=== PATIENT | female | born 1960 | race African-American/Black ===

== ENCOUNTER 2019-12-26 21:27 | Emergency (ER) | payer MEDICARE, MEDICAID ==
[~2019-12-26] VITALS: Ht 162.6 cm; Wt 64.0 kg
[2019-12-26] MEDS ORDERED: ASPI-1497 PO (21:56)
[2019-12-26] MEDS ORDERED: DEXAMETHASONE (21:59)
[2019-12-26] MEDS ORDERED: [UNRECOGNIZED DRUG - OTHER] (21:59)
[2019-12-26] MEDS ORDERED: RENAGEL (22:01)
[2019-12-26] MEDS ORDERED: NEPHRO-VITE (22:01)
[2019-12-26] MEDS ORDERED: LISINOPRIL (22:02)
[2019-12-26] MEDS ORDERED: LIDOCAINE 1%/EPI 1:100,000 10 ML VIAL IJ ONE (22:45)
[2019-12-26] MEDS ORDERED: LIDOCAINE HCL/EPINEPHRINE 1%-EPI 1:100,000 20 ML VIAL INFIL NR (23:15)
[2019-12-26 23:16] LABS: HEMATOCRIT. 26.9 % (36.0-48.0); HEMOGLOBIN. 9.4 g/dL (12.0-16.0); MEAN CORPUSCULAR HEMOGLOBIN 35.7 pg (28.0-32.0); MEAN CORPUSCULAR VOLUME 101.8 fL (81.0-99.0); MEAN PLATELET VOLUME 8.7 fl (7.4-10.4); PLATELET 162 x1000/uL (130-400); RED BLOOD CELL COUNT 2.64 mill/uL (4.2-5.4); RED CELL DISTRIBUTION WIDTH 17.2 % (11.6-14.6)
[2019-12-26 23:22] LABS: CHLORIDE 98 mEq/L (98-107)
[2019-12-26 23:25] LABS: PROTHROMBIN TIME 11.1 sec (9.6-11.0)
[2019-12-27 01:07] VITALS: BP 128/58
[2019-12-27 03:58] LABS: ATYPICAL LYMPHOCYTES 1; PLATELET ESTIMATE NORMAL
== END 2019-12-27 01:08 | disposition home or self-care (01) ==
LOC: ER 21:27
DX: R42 Dizziness and giddiness (principal); I11.0 Hypertensive heart disease with heart failure; F32.9 Major depressive disorder, single episode, unspecified; Z99.2 Dependence on renal dialysis; Z98.890 Other specified postprocedural states
CPT/HCPCS: 36415; 80053; 85025; 85610; 86850; 86870; 86900; 86901; 99283; J3490

== ENCOUNTER 2020-02-18 14:40 | Emergency (ER) | payer MEDICARE, MEDICAID ==
[~2020-02-18] VITALS: Ht 162.6 cm; Wt 63.0 kg
[~2020-02-18 14:40] MED LIST: ASPI-1497 PO; DEXAMETHASONE; LISINOPRIL; NEPHRO-VITE; RENAGEL
[2020-02-18] MEDS ORDERED: ONDANSETRON HCL 4MG/2ML INJ IV STA (15:31)
[2020-02-18] MEDS ORDERED: MORPHINE SULFATE 4 MG/ML CPJ (NOT FOR IM USE) IV STA (15:31)
[2020-02-18] MEDS ORDERED: MORPHINE SULFATE 10 MG/ML CPJ IM ONE (16:45)
[2020-02-18] MEDS ORDERED: ONDANSETRON 4MG ODT PO ONE (16:45)
[2020-02-18 18:07] LABS: BASOPHILS % 0.6 % (0.0-2.0); EOSINOPHILS % 2.7 % (0.0-5.0); HEMATOCRIT. 26.5 % (36.0-48.0); HEMOGLOBIN. 8.7 g/dL (12.0-16.0); LYMPHOCYTES % 17.8 % (20.0-50.0); MEAN CORPUSCULAR HEMOGLOBIN 33.7 pg (28.0-32.0); MEAN CORPUSCULAR VOLUME 102.7 fL (81.0-99.0); MEAN PLATELET VOLUME 9.1 fl (7.4-10.4); NEUTROPHILS % 75.9 % (40.0-76.0); PLATELET 215 x1000/uL (130-400); RED BLOOD CELL COUNT 2.58 mill/uL (4.2-5.4); RED CELL DISTRIBUTION WIDTH 20.3 % (11.6-14.6)
[2020-02-18 18:16] LABS: CHLORIDE 101 mEq/L (98-107)
[2020-02-18] MEDS ORDERED: HYDROCODONE/ACETAMINOPHEN 5/325MG TABLET PO ONE (20:00)
[2020-02-18 20:38] VITALS: BP 160/53
== END 2020-02-18 20:42 | disposition home or self-care (01) ==
LOC: ER 14:40
DX: S42.295A Other nondisplaced fracture of upper end of left humerus, initial encounter for closed fracture (principal); C90.01 Multiple myeloma in remission; E11.22 Type 2 diabetes mellitus with diabetic chronic kidney disease; N18.6 End stage renal disease; D63.1 Anemia in chronic kidney disease; Z92.21 Personal history of antineoplastic chemotherapy; Z99.2 Dependence on renal dialysis; Z87.828 Personal history of other (healed) physical injury and trauma; Z79.82 Long term (current) use of aspirin; W01.0XXA Fall on same level from slipping, tripping and stumbling without subsequent striking against object, initial encounter; Y93.89 Activity, other specified; Y92.018 Other place in single-family (private) house as the place of occurrence of the external cause
CPT/HCPCS: 36415; 72170; 73030; 73060; 73090; 73562; 80053; 85025; 85610; 96372; 96374; 99284; J2270; Q0162

== ENCOUNTER 2020-08-21 22:23 | Emergency (ER) | payer MEDICARE, MEDICAID ==
[~2020-08-21] VITALS: Ht 165.1 cm; Wt 59.0 kg
[2020-08-21] MEDS: ONDANSETRON HCL 4MG/2ML INJ IV STA (23:58)
[2020-08-21] MEDS: MORPHINE SULFATE 4 MG/ML CPJ (NOT FOR IM USE) IV STA (23:58)
[2020-08-22 00:31] LABS: HEMATOCRIT. 25.2 % (36.0-48.0); HEMOGLOBIN. 8.3 g/dL (12.0-16.0); MEAN CORPUSCULAR HEMOGLOBIN 33.7 pg (28.0-32.0); MEAN CORPUSCULAR VOLUME 102.1 fL (81.0-99.0); MEAN PLATELET VOLUME 8.2 fl (7.4-10.4); PLATELET 159 x1000/uL (130-400); RED BLOOD CELL COUNT 2.47 mill/uL (4.2-5.4); RED CELL DISTRIBUTION WIDTH 18.6 % (11.6-14.6)
[2020-08-22 00:38] LABS: CHLORIDE 100 mEq/L (98-107)
[2020-08-22 04:57] LABS: NUCLEATED RED BLOOD CELLS 1 /100 WBC; PLATELET ESTIMATE NORMAL
[2020-08-22 07:44] VITALS: BP 112/68
== END 2020-08-22 07:44 ==
LOC: ER 22:23
DX: M54.2 Cervicalgia (principal); M25.512 Pain in left shoulder; E11.22 Type 2 diabetes mellitus with diabetic chronic kidney disease; N18.6 End stage renal disease; D63.1 Anemia in chronic kidney disease; J90 Pleural effusion, not elsewhere classified; Z85.9 Personal history of malignant neoplasm, unspecified; Z99.2 Dependence on renal dialysis; Z79.82 Long term (current) use of aspirin; W01.0XXA Fall on same level from slipping, tripping and stumbling without subsequent striking against object, initial encounter; Y93.89 Activity, other specified; Y92.128 Other place in nursing home as the place of occurrence of the external cause
CPT/HCPCS: 36415; 70450; 71045; 72125; 73030; 73060; 80053; 84484; 85025; 93005; 96374; 96375; 99285; J2270; J2405

== ENCOUNTER → 2020-10-26 | Outpatient (CLI) | payer MEDICARE, MEDICAID ==
[~2020-10-26] MED LIST changes: +FOLI-43 PO
== END | disposition home or self-care (01) ==
LOC: CT 08:17
PROVIDERS: ATTEND Urology
DX: J90 Pleural effusion, not elsewhere classified (principal); I51.7 Cardiomegaly; N26.1 Atrophy of kidney (terminal); N20.0 Calculus of kidney; K56.41 Fecal impaction; K57.30 Diverticulosis of large intestine without perforation or abscess without bleeding; R60.1 Generalized edema; Z79.82 Long term (current) use of aspirin; Z79.899 Other long term (current) drug therapy; Z95.2 Presence of prosthetic heart valve
CPT/HCPCS: 74176; C1893

== ENCOUNTER 2021-02-14 13:19 | Inpatient (IN) | payer MEDICARE, MEDICAID ==
[~2021-02-14] VITALS: Ht 165.1 cm; Wt 83.0 kg
[~2021-02-14 13:19] MED LIST changes: +DEX6 PO; -DEXAMETHASONE; +FERR-71 PO; +FOLI0.4T6 MT; +FURO-152 PO; +GABA-529 PO; +HYDR-4346 PO; +LIDO700A30 TP; -LISINOPRIL; +MIDO10TA MT; +MIRT15TA6 PO; -NEPHRO-VITE; +NEPHRO-VITE PO; +PANT40TA51 PO; +SACC250C PO; +SACU1TAB7 MT; +TOPUD PO; +TRAM50TA3 PO; +ZOLP10TA2 PO
[2021-02-14] MEDS ORDERED: VANCOMYCIN 1 G PREMIX 200 ML IV ONE (15:00)
[2021-02-14] MEDS ORDERED: PIPERACILLIN/TAZ 3.375G PREMIX 50 ML IV ONE (15:00)
[2021-02-14] MEDS ORDERED: SODIUM CHLORIDE 0.9% 500 ML IV ONE (15:15)
[2021-02-14 15:28] LABS: HEMATOCRIT. 28.4 % (36.0-48.0); HEMOGLOBIN. 9.3 g/dL (12.0-16.0); MEAN CORPUSCULAR HEMOGLOBIN 32.3 pg (28.0-32.0); MEAN CORPUSCULAR VOLUME 98.7 fL (81.0-99.0); MEAN PLATELET VOLUME 8.2 fl (7.4-10.4); PLATELET 110 x1000/uL (130-400); RED BLOOD CELL COUNT 2.88 mill/uL (4.2-5.4); RED CELL DISTRIBUTION WIDTH 18.6 % (11.6-14.6)
[2021-02-14 15:34] LABS: CHLORIDE 103 mEq/L (98-107)
[2021-02-14 15:37] LABS: INR 1.2; PROTHROMBIN TIME 13.2 sec (9.6-11.0)
[2021-02-14 15:38] LABS: ETHANOL BLOOD < 10 mg/dL
[2021-02-14 15:43] LABS: CREATINE KINASE 11 IU/L (26-192)
[2021-02-14 15:50] LABS: PLATELET ESTIMATE DECREASED
[2021-02-14 16:12] LABS: BG BASE EXCESS -1.3 mmol/L (-2.0-2.0); BG CARBOXYHEMOGLOBIN 0.8 % (0.5-1.5); BG DEOXYHEMOGLOBIN 2.8 % (0.0-5.0); BG FRACTION INSPIRED OXYGEN 26; BG HCO3 ACT 21.9 mmol/L (22.0-26.0); BG METHEMOGLOBIN 0.3 % (0.0-1.5); BG OXYGEN SATURATION 97.2 % (92.0-98.5); BG OXYHEMOGLOBIN 96.1 % (94.0-97.0); BG PCO2 30.6 mmHg (35.0-45.0); BG PH 7.472 (7.350-7.450); BG PO2 109.1 mmHg (75.0-100.0); BG SAMPLE SITE RIGHT RADIAL; BG TOTAL HEMOGLOBIN 8.9 g/dL (12.0-18.0); BG VENT MODE NASAL CANNULA
[2021-02-14] MEDS: ACETAMINOPHEN 650MG SUPP PR SCH (21:36)
[2021-02-15] MEDS ORDERED: SODIUM CHLORIDE 0.9% 250 ML IV ONE
[2021-02-15] MEDS ORDERED: CLONIDINE 0.1MG TABLET PO PRN (00:30)
[2021-02-15] MEDS ORDERED: DIPHENHYDRAMINE 50MG/ML VIAL IV PRN (00:30)
[2021-02-15] MEDS ORDERED: SODIUM CHLORIDE 0.9% 1,000 ML IV SCH (00:30)
[2021-02-15] MEDS ORDERED: ONDANSETRON HCL 4MG/2ML INJ IV PRN (00:30)
[2021-02-15] MEDS ORDERED: ACETAMINOPHEN 325MG TABLET PO PRN (00:30)
[2021-02-15] MEDS ORDERED: VANCOMYCIN 1 G PREMIX 200 ML IV SCH (00:30)
[2021-02-15] MEDS ORDERED: CEFEPIME 1,000 MG in DEXTROSE 5% WATER 50 ML IV SCH (01:00)
[2021-02-15 05:04] VITALS: BP 112/67
[2021-02-15 05:09] VITALS: BP 112/67
[2021-02-15] MEDS: BLOOD SUGAR DIAGNOSTIC STRIP TEST SCH ×4 (05:50→21:13)
[2021-02-15] MEDS: DEXTROSE 50% WATER 50ML SYRINGE IV PRN (05:50)
[2021-02-15 08:00] VITALS: BP 101/59
[2021-02-15] MEDS: INSULIN LISPRO 100 UNITS/ML SUBCUT SCH ×4 (08:07→21:00)
[2021-02-15] MEDS ORDERED: HEPARIN 1000 UNITS/ML 10ML ONE (10:34)
[2021-02-15] MEDS ORDERED: LIDOCAINE HCL 1% 20ML VIAL (Pyxis) INJ ONE (10:34)
[2021-02-15] MEDS ORDERED: SODIUM POLYSTYRENE SULFONATE 15 G/60 ML BOT PO SCH (11:30)
[2021-02-15 12:00] VITALS: BP 109/61
[2021-02-15] MEDS: SODIUM CHLORIDE 23.4% 154 MEQ in DEXT 10% WATER 1,000 ML IV SCH (12:00)
[2021-02-15] MEDS: ACETAMINOPHEN 325MG TABLET PO PRN (12:00)
[2021-02-15 16:00] VITALS: BP 105/66
[2021-02-15] MEDS ORDERED: CEFAZOLIN 1000MG PREMIX 50 ML IV SCH ×2 (16:15→17:30)
[2021-02-15] MEDS ORDERED: VANCOMYCIN 750 MG PREMIX 150 ML IV NR (18:00)
[2021-02-15] MEDS: SEVELAMER CARBONATE 800 MG TABLET PO SCH (18:20)
[2021-02-15] MEDS: PIPERACILLIN/TAZOBACTAM 2.25G in DEXTROSE 5% WATER 50ML IV SCH (18:20)
[2021-02-15] MEDS ORDERED: NALOXONE HCL 0.4MG/ML VIAL IV PRN (19:45)
[2021-02-15 20:00] VITALS: BP 100/58
[2021-02-15] MEDS: PANTOPRAZOLE 40MG DR TABLET PO SCH (21:09)
[2021-02-15] MEDS: HYDROCODONE/ACETAMINOPHEN 5/325MG TABLET PO PRN (21:09)
[2021-02-15] MEDS: ACETAMINOPHEN 650MG SUPP PR SCH (21:10)
[2021-02-15] MEDS: MIRTAZAPINE 15MG TABLET PO SCH (21:10)
[2021-02-15 21:40] LABS: HEMATOCRIT. 32.3 % (36.0-48.0); HEMOGLOBIN. 10.4 g/dL (12.0-16.0); MEAN CORPUSCULAR HEMOGLOBIN 32.2 pg (28.0-32.0); MEAN CORPUSCULAR VOLUME 99.8 fL (81.0-99.0); RED BLOOD CELL COUNT 3.23 mill/uL (4.2-5.4)
[2021-02-15 22:33] LABS: PLATELET ESTIMATE DECREAS
[2021-02-15 22:34] LABS: MEAN PLATELET VOLUME 8.8 fl (7.4-10.4); PLATELET 91 x1000/uL (130-400)
[2021-02-16] VITALS: BP 108/64
[2021-02-16] MEDS: PIPERACILLIN/TAZOBACTAM 2.25G in DEXTROSE 5% WATER 50ML IV SCH ×2 (02:06→08:56)
[2021-02-16 04:00] VITALS: BP 103/52
[2021-02-16] MEDS: PANTOPRAZOLE 40MG DR TABLET PO SCH ×2 (06:16→21:16)
[2021-02-16] MEDS: INSULIN LISPRO 100 UNITS/ML SUBCUT SCH ×4 (06:50→21:00)
[2021-02-16] MEDS: BLOOD SUGAR DIAGNOSTIC STRIP TEST SCH ×4 (06:50→21:00)
[2021-02-16 08:00] VITALS: BP 103/54
[2021-02-16] MEDS: GABAPENTIN 100MG CAPSULE PO SCH ×2 (08:55→17:58)
[2021-02-16] MEDS: ASPIRIN 81MG EC TABLET PO SCH (08:55)
[2021-02-16] MEDS: SEVELAMER CARBONATE 800 MG TABLET PO SCH (08:55)
[2021-02-16] MEDS: FOLIC ACID/VITAMIN B COMP W-C TABLET PO SCH (08:56)
[2021-02-16] MEDS: HYDROCODONE/ACETAMINOPHEN 5/325MG TABLET PO PRN ×3 (08:56→21:16)
[2021-02-16] MEDS ORDERED: FOLIC ACID 1MG TABLET PO SCH (09:00)
[2021-02-16] MEDS ORDERED: FERROUS SULFATE 325MG TABLET PO SCH (09:00)
[2021-02-16 12:00] VITALS: BP 131/64
[2021-02-16] MEDS ORDERED: SODIUM POLYSTYRENE SULFONATE 15 G/60 ML BOT PO NR (12:00)
[2021-02-16] MEDS: DEXTROSE 50% WATER 50ML SYRINGE IV PRN ×2 (13:57→21:03)
[2021-02-16] MEDS: SODIUM CHLORIDE 23.4% 154 MEQ in DEXT 10% WATER 1,000 ML IV SCH (14:27)
[2021-02-16 15:07] LABS: HEMATOCRIT. 27.3 % (36.0-48.0); MEAN CORPUSCULAR HEMOGLOBIN 32.3 pg (28.0-32.0); MEAN CORPUSCULAR VOLUME 97.8 fL (81.0-99.0); MEAN PLATELET VOLUME 9.2 fl (7.4-10.4); PLATELET 67 x1000/uL (130-400); RED BLOOD CELL COUNT 2.79 mill/uL (4.2-5.4); RED CELL DISTRIBUTION WIDTH 17.6 % (11.6-14.6)
[2021-02-16 15:22] LABS: PHOSPHORUS 3.8 mg/dL (2.5-4.9)
[2021-02-16 16:00] VITALS: BP 111/58
[2021-02-16 16:29] LABS: PLATELET ESTIMATE DECREASED
[2021-02-16 20:00] VITALS: BP 131/67
[2021-02-16] MEDS ORDERED: EPOETIN ALFA-EPBX 4,000 UNIT/ML VIAL SUBCUT SCH (21:00)
[2021-02-16] MEDS: ACETAMINOPHEN 650MG SUPP PR SCH (21:15)
[2021-02-16] MEDS: MIRTAZAPINE 15MG TABLET PO SCH (21:16)
[2021-02-17] VITALS: BP 96/55
[2021-02-17 04:00] VITALS: BP 97/45
[2021-02-17] MEDS: DEXTROSE 50% WATER 50ML SYRINGE IV PRN ×2 (05:45→12:07)
[2021-02-17] MEDS: PANTOPRAZOLE 40MG DR TABLET PO SCH ×2 (06:02→20:36)
[2021-02-17] MEDS: INSULIN LISPRO 100 UNITS/ML SUBCUT SCH ×4 (06:34→20:37)
[2021-02-17] MEDS: BLOOD SUGAR DIAGNOSTIC STRIP TEST SCH ×4 (06:34→20:37)
[2021-02-17 08:00] VITALS: BP 110/55
[2021-02-17] MEDS: ASPIRIN 81MG EC TABLET PO SCH (08:52)
[2021-02-17] MEDS: GABAPENTIN 100MG CAPSULE PO SCH ×2 (08:52→17:34)
[2021-02-17] MEDS: FOLIC ACID/VITAMIN B COMP W-C TABLET PO SCH (08:52)
[2021-02-17 12:00] VITALS: BP 115/56
[2021-02-17 16:00] VITALS: BP 105/53
[2021-02-17 16:52] LABS: HEMATOCRIT. 30.2 % (36.0-48.0); HEMOGLOBIN. 9.4 g/dL (12.0-16.0); MEAN CORPUSCULAR HEMOGLOBIN 32.7 pg (28.0-32.0); MEAN CORPUSCULAR VOLUME 105.2 fL (81.0-99.0); MEAN PLATELET VOLUME 9.1 fl (7.4-10.4); PLATELET 56 x1000/uL (130-400); RED BLOOD CELL COUNT 2.87 mill/uL (4.2-5.4); RED CELL DISTRIBUTION WIDTH 17.9 % (11.6-14.6)
[2021-02-17 17:12] LABS: PHOSPHORUS 4.7 mg/dL (2.5-4.9)
[2021-02-17] MEDS: SODIUM CHLORIDE 23.4% 154 MEQ in DEXT 10% WATER 1,000 ML IV SCH (17:34)
[2021-02-17 20:00] VITALS: BP 112/61
[2021-02-17] MEDS: MIRTAZAPINE 15MG TABLET PO SCH (20:36)
[2021-02-17 20:37] LABS: PLATELET ESTIMATE DECREASED
[2021-02-17] MEDS: ACETAMINOPHEN 650MG SUPP PR SCH (20:38)
[2021-02-18] VITALS: BP 115/66
[2021-02-18 04:00] VITALS: BP 101/66
[2021-02-18] MEDS: INSULIN LISPRO 100 UNITS/ML SUBCUT SCH ×4 (06:35→20:57)
[2021-02-18] MEDS: BLOOD SUGAR DIAGNOSTIC STRIP TEST SCH ×4 (06:35→20:57)
[2021-02-18] MEDS: PANTOPRAZOLE 40MG DR TABLET PO SCH ×2 (06:40→20:53)
[2021-02-18 07:11] LABS: BASOPHILS % 0.5 % (0.0-2.0); EOSINOPHILS % 2.2 % (0.0-5.0); HEMATOCRIT. 27.7 % (36.0-48.0); HEMOGLOBIN. 8.6 g/dL (12.0-16.0); LYMPHOCYTES % 13.2 % (20.0-50.0); MEAN CORPUSCULAR HEMOGLOBIN 31.7 pg (28.0-32.0); MEAN CORPUSCULAR VOLUME 101.7 fL (81.0-99.0); MEAN PLATELET VOLUME 9.3 fl (7.4-10.4); MONOCYTES % 9.6 % (2.0-8.0); NEUTROPHILS % 74.5 % (40.0-76.0); PLATELET 77 x1000/uL (130-400); RED BLOOD CELL COUNT 2.72 mill/uL (4.2-5.4); RED CELL DISTRIBUTION WIDTH 17.9 % (11.6-14.6)
[2021-02-18 07:14] LABS: PHOSPHORUS 4.7 mg/dL (2.5-4.9)
[2021-02-18 08:00] VITALS: BP 132/52
[2021-02-18] MEDS: FOLIC ACID/VITAMIN B COMP W-C TABLET PO SCH (10:22)
[2021-02-18] MEDS: GABAPENTIN 100MG CAPSULE PO SCH ×2 (10:22→18:19)
[2021-02-18] MEDS: ASPIRIN 81MG EC TABLET PO SCH (10:22)
[2021-02-18] MEDS: HYDROCODONE/ACETAMINOPHEN 5/325MG TABLET PO PRN ×2 (11:39→21:04)
[2021-02-18 12:00] VITALS: BP 97/57
[2021-02-18] MEDS ORDERED: VANCOMYCIN 750 MG PREMIX 150 ML IV SCH (15:00)
[2021-02-18 16:00] VITALS: BP 130/64
[2021-02-18 20:00] VITALS: BP 101/66
[2021-02-18] MEDS: SODIUM CHLORIDE 23.4% 154 MEQ in DEXT 10% WATER 1,000 ML IV SCH (20:53)
[2021-02-18] MEDS: MIRTAZAPINE 15MG TABLET PO SCH (20:53)
[2021-02-18] MEDS: ACETAMINOPHEN 650MG SUPP PR SCH (21:14)
[2021-02-18] MEDS: EPOETIN ALFA-EPBX 10,000 UNIT/ML VIAL SUBCUT SCH (22:03)
[2021-02-19] VITALS: BP 111/60
[2021-02-19 04:00] VITALS: BP 103/57
[2021-02-19] MEDS: BLOOD SUGAR DIAGNOSTIC STRIP TEST SCH ×4 (06:09→21:22)
[2021-02-19] MEDS: PANTOPRAZOLE 40MG DR TABLET PO SCH ×2 (06:09→21:22)
[2021-02-19 07:18] LABS: HEMOGLOBIN. 9.3 g/dL (12.0-16.0); MEAN CORPUSCULAR HEMOGLOBIN 31.8 pg (28.0-32.0); MEAN CORPUSCULAR VOLUME 99.6 fL (81.0-99.0); MEAN PLATELET VOLUME 9.1 fl (7.4-10.4); PLATELET 110 x1000/uL (130-400); RED BLOOD CELL COUNT 2.91 mill/uL (4.2-5.4); RED CELL DISTRIBUTION WIDTH 17.8 % (11.6-14.6)
[2021-02-19 07:28] LABS: PHOSPHORUS 4.2 mg/dL (2.5-4.9)
[2021-02-19] MEDS: INSULIN LISPRO 100 UNITS/ML SUBCUT SCH ×3 (07:40→21:00)
[2021-02-19 08:00] VITALS: BP 110/87
[2021-02-19] MEDS: FOLIC ACID/VITAMIN B COMP W-C TABLET PO SCH (10:40)
[2021-02-19] MEDS: ASPIRIN 81MG EC TABLET PO SCH (10:40)
[2021-02-19] MEDS: GABAPENTIN 100MG CAPSULE PO SCH ×2 (10:40→16:30)
[2021-02-19] MEDS: HYDROCODONE/ACETAMINOPHEN 5/325MG TABLET PO PRN ×2 (11:19→21:30)
[2021-02-19 12:00] VITALS: BP 105/53
[2021-02-19 13:37] LABS: PLATELET ESTIMATE DECREASED
[2021-02-19 16:00] VITALS: BP 103/49
[2021-02-19 20:00] VITALS: BP 104/56
[2021-02-19] MEDS: ACETAMINOPHEN 650MG SUPP PR SCH (21:15)
[2021-02-19] MEDS: MIRTAZAPINE 15MG TABLET PO SCH (21:22)
[2021-02-20] VITALS: BP 107/55
[2021-02-20 04:00] VITALS: BP 114/56
[2021-02-20] MEDS: SODIUM CHLORIDE 23.4% 154 MEQ in DEXT 10% WATER 1,000 ML IV SCH (05:56)
[2021-02-20] MEDS: HYDROCODONE/ACETAMINOPHEN 5/325MG TABLET PO PRN (06:07)
[2021-02-20] MEDS: DEXTROSE 50% WATER 50ML SYRINGE IV PRN (06:08)
[2021-02-20] MEDS: PANTOPRAZOLE 40MG DR TABLET PO SCH ×2 (06:08→21:05)
[2021-02-20] MEDS: BLOOD SUGAR DIAGNOSTIC STRIP TEST SCH ×4 (06:15→21:06)
[2021-02-20 06:46] LABS: HEMATOCRIT. 30.3 % (36.0-48.0); HEMOGLOBIN. 9.2 g/dL (12.0-16.0); MEAN CORPUSCULAR HEMOGLOBIN 31.4 pg (28.0-32.0); MEAN CORPUSCULAR VOLUME 103.2 fL (81.0-99.0); MEAN PLATELET VOLUME 8.4 fl (7.4-10.4); PLATELET 128 x1000/uL (130-400); RED BLOOD CELL COUNT 2.93 mill/uL (4.2-5.4); RED CELL DISTRIBUTION WIDTH 18.3 % (11.6-14.6)
[2021-02-20 07:00] LABS: PHOSPHORUS 5.2 mg/dL (2.5-4.9)
[2021-02-20] MEDS: INSULIN LISPRO 100 UNITS/ML SUBCUT SCH ×4 (07:40→21:00)
[2021-02-20 08:00] VITALS: BP 95/47
[2021-02-20] MEDS: ASPIRIN 81MG EC TABLET PO SCH (10:01)
[2021-02-20] MEDS: FOLIC ACID/VITAMIN B COMP W-C TABLET PO SCH (10:01)
[2021-02-20] MEDS: GABAPENTIN 100MG CAPSULE PO SCH ×2 (10:01→17:36)
[2021-02-20 12:00] VITALS: BP 111/57
[2021-02-20 16:00] VITALS: BP 117/61
[2021-02-20 16:47] LABS: PLATELET ESTIMATE DECREASED
[2021-02-20 20:00] VITALS: BP 120/61
[2021-02-20] MEDS: MIRTAZAPINE 15MG TABLET PO SCH (21:05)
[2021-02-20] MEDS: ACETAMINOPHEN 650MG SUPP PR SCH (21:07)
[2021-02-20] MEDS: ACETAMINOPHEN 325MG TABLET PO PRN (22:22)
[2021-02-21] VITALS (7 sets, daily range): BP systolic 104–126; BP diastolic 56–70
[2021-02-21] MEDS: BLOOD SUGAR DIAGNOSTIC STRIP TEST SCH ×4 (06:16→21:22)
[2021-02-21] MEDS: PANTOPRAZOLE 40MG DR TABLET PO SCH ×2 (06:17→21:57)
[2021-02-21] MEDS: INSULIN LISPRO 100 UNITS/ML SUBCUT SCH ×4 (07:34→21:00)
[2021-02-21] MEDS: FOLIC ACID/VITAMIN B COMP W-C TABLET PO SCH ×2 (08:35→08:37)
[2021-02-21] MEDS: GABAPENTIN 100MG CAPSULE PO SCH ×3 (08:35→17:00)
[2021-02-21] MEDS: ASPIRIN 81MG EC TABLET PO SCH ×2 (08:35→08:37)
[2021-02-21 09:14] LABS: PHOSPHORUS 6.5 mg/dL (2.5-4.9)
[2021-02-21 11:11] LABS: BASOPHILS % 0.7 % (0.0-2.0); EOSINOPHILS % 1.2 % (0.0-5.0); HEMATOCRIT. 23.1 % (36.0-48.0); HEMOGLOBIN. 7.3 g/dL (12.0-16.0); LYMPHOCYTES % 18.5 % (20.0-50.0); MEAN CORPUSCULAR HEMOGLOBIN 32.2 pg (28.0-32.0); MEAN CORPUSCULAR VOLUME 102.3 fL (81.0-99.0); MEAN PLATELET VOLUME 8.9 fl (7.4-10.4); MONOCYTES % 7.2 % (2.0-8.0); NEUTROPHILS % 72.4 % (40.0-76.0); PLATELET 144 x1000/uL (130-400); RED BLOOD CELL COUNT 2.26 mill/uL (4.2-5.4); RED CELL DISTRIBUTION WIDTH 18.3 % (11.6-14.6)
[2021-02-21] MEDS: DEXTROSE 50% WATER 50ML SYRINGE IV PRN (12:48)
[2021-02-21] MEDS ORDERED: HEPARIN SODIUM 1,000 UNIT/1ML VIAL IV ONE (14:15)
[2021-02-21] MEDS ORDERED: LIDOCAINE HCL 1% 20ML VIAL (Pyxis) INJ ONE (14:15)
[2021-02-21] MEDS ORDERED: BUPIVACAINE HCL/PF 0.5% (5MG/ML) 10ML ONE (14:15)
[2021-02-21] MEDS ORDERED: BACITRACIN 50,000 UNITS/VIAL ONE (14:15)
[2021-02-21] MEDS ORDERED: MIDAZOLAM HCL 2 MG/2 ML VIAL ONE (15:11)
[2021-02-21] MEDS ORDERED: PROPOFOL 200MG/20ML VIAL IV ONE ×2 (15:11→16:52)
[2021-02-21] MEDS ORDERED: FENTANYL CITRATE/PF 50MCG/ML 2ML VIAL ONE (15:11)
[2021-02-21] MEDS ORDERED: DEXAMETHASONE 4MG/ML 1ML VIAL ONE (15:15)
[2021-02-21] MEDS ORDERED: ONDANSETRON HCL 4MG/2ML INJ ONE (15:15)
[2021-02-21] MEDS ORDERED: LABETALOL 5MG/ML SYR 20 MG/4 ML SYRINGE IV PRN (15:15)
[2021-02-21] MEDS ORDERED: MEPERIDINE HCL/PF 25MG/ML CPJ IV PRN (15:15)
[2021-02-21] MEDS ORDERED: ONDANSETRON HCL 4MG/2ML INJ IV PRN (15:15)
[2021-02-21] MEDS ORDERED: HYDROMORPHONE HCL/PF 2MG/ML CPJ IV PRN ×2 (15:15→19:15)
[2021-02-21] MEDS ORDERED: BUPIVACAINE HCL/PF 0.25% (2.5MG/ML) 10ML ONE (15:15)
[2021-02-21] MEDS ORDERED: ROPIVACAINE HCL 10MG/ML 20 ML VIAL EPI ONE (15:16)
[2021-02-21] MEDS ORDERED: THROMBIN (BOVINE) 5000 UNITS/VIAL TOP ONE (16:10)
[2021-02-21] MEDS ORDERED: ROCURONIUM BROMIDE 10MG/ML VIAL 5ML IV ONE (17:12)
[2021-02-21] MEDS ORDERED: VANCOMYCIN 500 MG PREMIX 100 ML IV NR (18:00)
[2021-02-21] MEDS ORDERED: NEOSTIGMINE METHYLSULFATE 1MG/ML 10 ML VIAL ONE (18:29)
[2021-02-21] MEDS ORDERED: GLYCOPYRROLATE 0.2 MG/ML 2ML VIAL ONE (18:29)
[2021-02-21] MEDS: ACETAMINOPHEN 650MG SUPP PR SCH (21:15)
[2021-02-21] MEDS: MIRTAZAPINE 15MG TABLET PO SCH (21:57)
[2021-02-21] MEDS: EPOETIN ALFA-EPBX 10,000 UNIT/ML VIAL SUBCUT SCH (22:02)
[2021-02-22] VITALS (7 sets, daily range): BP systolic 100–124; BP diastolic 55–67
[2021-02-22] MEDS: HYDROCODONE/ACETAMINOPHEN 5/325MG TABLET PO PRN ×2 (03:44→21:11)
[2021-02-22] MEDS: PANTOPRAZOLE 40MG DR TABLET PO SCH ×2 (06:35→21:02)
[2021-02-22] MEDS: BLOOD SUGAR DIAGNOSTIC STRIP TEST SCH ×4 (06:35→21:03)
[2021-02-22] MEDS: INSULIN LISPRO 100 UNITS/ML SUBCUT SCH ×4 (06:40→21:00)
[2021-02-22 07:58] LABS: HEMATOCRIT. 30.8 % (36.0-48.0); HEMOGLOBIN. 10.3 g/dL (12.0-16.0); MEAN CORPUSCULAR HEMOGLOBIN 31.5 pg (28.0-32.0); MEAN CORPUSCULAR VOLUME 94.8 fL (81.0-99.0); MEAN PLATELET VOLUME 8.7 fl (7.4-10.4); PLATELET 175 x1000/uL (130-400); RED BLOOD CELL COUNT 3.26 mill/uL (4.2-5.4); RED CELL DISTRIBUTION WIDTH 18.2 % (11.6-14.6)
[2021-02-22 08:04] LABS: PHOSPHORUS 5.2 mg/dL (2.5-4.9)
[2021-02-22] MEDS: ASPIRIN 81MG EC TABLET PO SCH (09:31)
[2021-02-22] MEDS: GABAPENTIN 100MG CAPSULE PO SCH ×2 (09:31→17:45)
[2021-02-22] MEDS: FOLIC ACID/VITAMIN B COMP W-C TABLET PO SCH (09:32)
[2021-02-22] MEDS ORDERED: SODIUM POLYSTYRENE SULFONATE 15 G/60 ML BOT PO NR (10:30)
[2021-02-22] MEDS: RIFAMPIN 300MG CAPSULE PO SCH ×2 (14:06→21:02)
[2021-02-22] MEDS: SODIUM CHLORIDE 23.4% 154 MEQ in DEXT 10% WATER 1,000 ML IV SCH (14:07)
[2021-02-22 14:58] LABS: PLATELET ESTIMATE NORMAL
[2021-02-22] MEDS ORDERED: NALOXONE HCL 0.4MG/ML VIAL IV PRN (20:30)
[2021-02-22] MEDS: MIRTAZAPINE 15MG TABLET PO SCH (21:02)
[2021-02-23] VITALS: BP 98/62
[2021-02-23 04:00] VITALS: BP 116/82
[2021-02-23] MEDS: INSULIN LISPRO 100 UNITS/ML SUBCUT SCH ×4 (06:29→21:00)
[2021-02-23] MEDS: BLOOD SUGAR DIAGNOSTIC STRIP TEST SCH ×4 (06:29→21:50)
[2021-02-23] MEDS: PANTOPRAZOLE 40MG DR TABLET PO SCH ×2 (06:29→21:49)
[2021-02-23] MEDS: RIFAMPIN 300MG CAPSULE PO SCH ×3 (06:29→21:50)
[2021-02-23 08:00] VITALS: BP 113/64
[2021-02-23] MEDS: ASPIRIN 81MG EC TABLET PO SCH (08:44)
[2021-02-23] MEDS: FOLIC ACID/VITAMIN B COMP W-C TABLET PO SCH (08:44)
[2021-02-23] MEDS: GABAPENTIN 100MG CAPSULE PO SCH ×2 (08:45→17:49)
[2021-02-23 12:00] VITALS: BP 99/54
[2021-02-23 16:00] VITALS: BP 102/64
[2021-02-23 16:48] LABS: PHOSPHORUS 5.3 mg/dL (2.5-4.9)
[2021-02-23 20:00] VITALS: BP 104/66
[2021-02-23] MEDS ORDERED: VANCOMYCIN 500 MG PREMIX 100 ML IV SCH (20:00)
[2021-02-23] MEDS ORDERED: EPOETIN ALFA-EPBX 4,000 UNIT/ML VIAL SUBCUT SCH (21:00)
[2021-02-23] MEDS: MIRTAZAPINE 15MG TABLET PO SCH (21:50)
[2021-02-24] VITALS (23 sets, daily range): BP systolic 97–120; BP diastolic 48–73
[2021-02-24] MEDS: RIFAMPIN 300MG CAPSULE PO SCH ×3 (06:00→21:18)
[2021-02-24] MEDS: PANTOPRAZOLE 40MG DR TABLET PO SCH ×2 (06:03→21:00)
[2021-02-24] MEDS: BLOOD SUGAR DIAGNOSTIC STRIP TEST SCH ×4 (06:04→20:32)
[2021-02-24 06:36] LABS: HEMATOCRIT. 30.8 % (36.0-48.0); MEAN CORPUSCULAR VOLUME 96.1 fL (81.0-99.0); MEAN PLATELET VOLUME 8.6 fl (7.4-10.4); PLATELET 171 x1000/uL (130-400); RED BLOOD CELL COUNT 3.21 mill/uL (4.2-5.4); RED CELL DISTRIBUTION WIDTH 18.6 % (11.6-14.6)
[2021-02-24 06:59] LABS: PHOSPHORUS 3.6 mg/dL (2.5-4.9)
[2021-02-24] MEDS: INSULIN LISPRO 100 UNITS/ML SUBCUT SCH ×4 (07:40→20:33)
[2021-02-24] MEDS: GABAPENTIN 100MG CAPSULE PO SCH ×2 (09:00→18:39)
[2021-02-24] MEDS: ASPIRIN 81MG EC TABLET PO SCH (09:00)
[2021-02-24] MEDS: FOLIC ACID/VITAMIN B COMP W-C TABLET PO SCH (09:00)
[2021-02-24] MEDS ORDERED: MIDAZOLAM HCL 2 MG/2 ML VIAL ONE ×2 (10:10→10:13)
[2021-02-24] MEDS ORDERED: FENTANYL CITRATE/PF 50MCG/ML 2ML VIAL ONE ×2 (10:13→13:00)
[2021-02-24] MEDS ORDERED: FLUMAZENIL 0.1 MG/ML 5ML VIAL IV ONE (10:14)
[2021-02-24] MEDS ORDERED: NALOXONE HCL 0.4 MG/ML 1ML VIAL ONE (10:14)
[2021-02-24] MEDS ORDERED: LIDOCAINE HCL 2% JELLY 5ML ONE (10:14)
[2021-02-24] MEDS ORDERED: TETRACAINE/BENZOCAINE/BUTAMBEN 20 GM SPRAY MM ONE (10:15)
[2021-02-24] MEDS ORDERED: HEPARIN 1000 UNITS/ML 10ML ONE (13:00)
[2021-02-24] MEDS ORDERED: LIDOCAINE HCL 1% 20ML VIAL (Pyxis) INJ ONE (13:00)
[2021-02-24] MEDS ORDERED: SODIUM BICARBONATE 4% (2.4MEQ) 5ML VIAL IV ONE (13:00)
[2021-02-24] MEDS ORDERED: IOHEXOL-300 50 ML BOTTLE IV ONE (13:59)
[2021-02-24] MEDS ORDERED: FENTANYL CITRATE/PF 50MCG/ML 2ML VIAL IV ONE (14:15)
[2021-02-24] MEDS: HYDROCODONE/ACETAMINOPHEN 5/325MG TABLET PO PRN (15:35)
[2021-02-24] MEDS: MIRTAZAPINE 15MG TABLET PO SCH (21:00)
[2021-02-25 18:04] LABS: PLATELET ESTIMATE NORMAL
== END 2021-02-24 21:23 | DRG 252 ==
LOC: ER 13:19 → MICUSO 19:28 → EDBEDREQTM 19:34 → EDBEDREQ 19:34 → 7WST 02-15 03:56 → 8WST 02-15 15:26
PROVIDERS: ADMIT Internal Medicine; ATTEND Internal Medicine
PROC: 06HY33Z Insertion of Infusion Device into Lower Vein, Percutaneous Approach (ICD-10-PCS; 2021-02-15)
PROC: B54BZZA Ultrasonography of Right Lower Extremity Veins, Guidance (ICD-10-PCS; 2021-02-15)
PROC: 5A1D70Z Performance of Urinary Filtration, Intermittent, Less than 6 Hours Per Day (ICD-10-PCS; 2021-02-15)
PROC: 5A1D70Z Performance of Urinary Filtration, Intermittent, Less than 6 Hours Per Day (ICD-10-PCS; 2021-02-16)
PROC: 5A1D70Z Performance of Urinary Filtration, Intermittent, Less than 6 Hours Per Day (ICD-10-PCS; 2021-02-18)
PROC: 05PY0JZ Removal of Synthetic Substitute from Upper Vein, Open Approach (ICD-10-PCS; 2021-02-21)
PROC: 03PY0JZ Removal of Synthetic Substitute from Upper Artery, Open Approach (ICD-10-PCS; 2021-02-21)
PROC: 5A1D70Z Performance of Urinary Filtration, Intermittent, Less than 6 Hours Per Day (ICD-10-PCS; 2021-02-21)
PROC: 30233N1 Transfusion of Nonautologous Red Blood Cells into Peripheral Vein, Percutaneous Approach (ICD-10-PCS; 2021-02-21)
PROC: 5A1D70Z Performance of Urinary Filtration, Intermittent, Less than 6 Hours Per Day (ICD-10-PCS; 2021-02-23)
PROC: 0JH63XZ Insertion of Tunneled Vascular Access Device into Chest Subcutaneous Tissue and Fascia, Percutaneous Approach (ICD-10-PCS; principal; 2021-02-24)
PROC: 02HV33Z Insertion of Infusion Device into Superior Vena Cava, Percutaneous Approach (ICD-10-PCS; 2021-02-24)
PROC: B5181ZA Fluoroscopy of Superior Vena Cava using Low Osmolar Contrast, Guidance (ICD-10-PCS; 2021-02-24)
PROC: B548ZZA Ultrasonography of Superior Vena Cava, Guidance (ICD-10-PCS; 2021-02-24)
PROC: 5A1D70Z Performance of Urinary Filtration, Intermittent, Less than 6 Hours Per Day (ICD-10-PCS; 2021-02-24)
DX: T82.7XXA Infection and inflammatory reaction due to other cardiac and vascular devices, implants and grafts, initial encounter (principal); A41.02 Sepsis due to Methicillin resistant Staphylococcus aureus; G93.41 Metabolic encephalopathy; J96.00 Acute respiratory failure, unspecified whether with hypoxia or hypercapnia; N18.6 End stage renal disease; R65.20 Severe sepsis without septic shock; C90.00 Multiple myeloma not having achieved remission; I13.2 Hypertensive heart and chronic kidney disease with heart failure and with stage 5 chronic kidney disease, or end stage renal disease; I43 Cardiomyopathy in diseases classified elsewhere; I69.354 Hemiplegia and hemiparesis following cerebral infarction affecting left non-dominant side; T82.838A Hemorrhage due to vascular prosthetic devices, implants and grafts, initial encounter; E11.649 Type 2 diabetes mellitus with hypoglycemia without coma; I27.21 Secondary pulmonary arterial hypertension; K74.60 Unspecified cirrhosis of liver; Y84.1 Kidney dialysis as the cause of abnormal reaction of the patient, or of later complication, without mention of misadventure at the time of the procedure; Z53.20 Procedure and treatment not carried out because of patient's decision for unspecified reasons; I50.9 Heart failure, unspecified; D69.6 Thrombocytopenia, unspecified; E21.3 Hyperparathyroidism, unspecified; K21.9 Gastro-esophageal reflux disease without esophagitis; F32.9 Major depressive disorder, single episode, unspecified; E11.42 Type 2 diabetes mellitus with diabetic polyneuropathy; D64.9 Anemia, unspecified; E11.22 Type 2 diabetes mellitus with diabetic chronic kidney disease; E87.5 Hyperkalemia; Z20.822 Contact with and (suspected) exposure to COVID-19; I34.0 Nonrheumatic mitral (valve) insufficiency; M62.50 Muscle wasting and atrophy, not elsewhere classified, unspecified site; Y83.2 Surgical operation with anastomosis, bypass or graft as the cause of abnormal reaction of the patient, or of later complication, without mention of misadventure at the time of the procedure; Z82.49 Family history of ischemic heart disease and other diseases of the circulatory system; Z87.442 Personal history of urinary calculi; Y92.89 Other specified places as the place of occurrence of the external cause; Z99.2 Dependence on renal dialysis; Z79.1 Long term (current) use of non-steroidal anti-inflammatories (NSAID); Z79.899 Other long term (current) drug therapy; Z91.15 Patient's noncompliance with renal dialysis
CPT/HCPCS: 36415; 36430; 36558; 36600; 71045; 76937; 77001; 80048; 80053; 80061; 80202; 80320; 82375; 82550; 82728; 82805; 82962; 83036; 83605; 83615; 83735; 83880; 84100; 84145; 84484; 85025; 86140; 86803; 86850; 86870; 86900; 86920; 87077; 87186; 87340; 87426; 88304; 93005; 93306; 93312; 99152; 99153; 99291; C1750; C1752; J0690; J0692; J0885; J1100; J1170; J1644; J1815; J2250; J2310; J2405; J2543; J2704; J2710; J2795; J3010; J3370; J3490; J7030; J7040; J7050; J7060; J7131; P9016; Q9967; U0003; U0005; G0480; G0500

== ENCOUNTER 2021-07-25 11:39 | Inpatient (IN) | payer MEDICARE, MEDICAID ==
[~2021-07-25] VITALS: Ht 154.9 cm; Wt 58.3 kg
[~2021-07-25 11:39] MED LIST changes: -FOLI0.4T6 MT; +MIRT-89 PO; -MIRT15TA6 PO
[2021-07-25 13:12] LABS: CHLORIDE 106 mEq/L (98-107)
[2021-07-25 13:17] LABS: BASOPHILS % 0.4 % (0.0-2.0); HEMATOCRIT. 35.7 % (36.0-48.0); HEMOGLOBIN. 11.6 g/dL (12.0-16.0); LYMPHOCYTES % 14.4 % (20.0-50.0); MEAN CORPUSCULAR HEMOGLOBIN 32.3 pg (28.0-32.0); MEAN CORPUSCULAR VOLUME 99.9 fL (81.0-99.0); MEAN PLATELET VOLUME 8.2 fl (7.4-10.4); MONOCYTES % 6.7 % (2.0-8.0); NEUTROPHILS % 75.5 % (40.0-76.0); PLATELET 149 x1000/uL (130-400); RED BLOOD CELL COUNT 3.58 mill/uL (4.2-5.4); RED CELL DISTRIBUTION WIDTH 16.7 % (11.6-14.6)
[2021-07-25 13:24] LABS: BG BASE EXCESS -6.7 mmol/L (-2.0-2.0); BG CARBOXYHEMOGLOBIN 1.2 % (0.5-1.5); BG DEOXYHEMOGLOBIN 32.5 % (0.0-5.0); BG FRACTION INSPIRED OXYGEN 21; BG HCO3 ACT 19.7 mmol/L (22.0-26.0); BG OXYGEN SATURATION 67.1 % (92.0-98.5); BG OXYHEMOGLOBIN 66.3 % (94.0-97.0); BG PCO2 43.1 mmHg (35.0-45.0); BG PH 7.278 (7.350-7.450); BG SAMPLE SITE RIGHT BRACHIAL; BG TOTAL HEMOGLOBIN 11.4 g/dL (12.0-18.0); BG VENT MODE ROOM AIR
[2021-07-25 15:23] LABS: BG BASE EXCESS -8.8 mmol/L (-2.0-2.0); BG DEOXYHEMOGLOBIN 2.4 % (0.0-5.0); BG FRACTION INSPIRED OXYGEN 30; BG HCO3 ACT 16.8 mmol/L (22.0-26.0); BG METHEMOGLOBIN 0.3 % (0.0-1.5); BG OXYGEN SATURATION 97.6 % (92.0-98.5); BG OXYHEMOGLOBIN 97.3 % (94.0-97.0); BG PCO2 35.6 mmHg (35.0-45.0); BG PH 7.293 (7.350-7.450); BG PO2 159.9 mmHg (75.0-100.0); BG SAMPLE SITE LEFT BRACHIAL; BG TOTAL HEMOGLOBIN 10.9 g/dL (12.0-18.0); BG VENT MODE NASAL CANNULA
[2021-07-25] MEDS ORDERED: SODIUM POLYSTYRENE SULFONATE 15 G/60 ML BOT PO NR (16:30)
[2021-07-25] MEDS ORDERED: FUROSEMIDE 100MG/10ML VIAL IVP NR (16:30)
[2021-07-25] MEDS ORDERED: SODIUM BICARBONATE 8.4% 1 MEQ/ML 50ML SYR IV NR (16:45)
[2021-07-25] MEDS ORDERED: DOCUSATE SODIUM 100MG CAPSULE PO PRN (17:00)
[2021-07-25] MEDS ORDERED: ACETAMINOPHEN 325MG TABLET PO PRN (17:00)
[2021-07-25] MEDS ORDERED: ONDANSETRON HCL 4MG/2ML INJ IV PRN (17:00)
[2021-07-25] MEDS: MIDODRINE HCL 5MG TABLET PO SCH (17:15)
[2021-07-25] MEDS ORDERED: ZOLPIDEM TARTRATE 5MG TABLET PO PRN (17:15)
[2021-07-25] MEDS: GABAPENTIN 100MG CAPSULE PO SCH (18:00)
[2021-07-25] MEDS: FAMOTIDINE 20MG TABLET PO SCH (22:09)
[2021-07-25] MEDS: HEPARIN 5000 UNITS/ML VIAL SUBCUT SCH (22:10)
[2021-07-26 05:45] VITALS: BP 141/75
[2021-07-26] MEDS: HEPARIN 5000 UNITS/ML VIAL SUBCUT SCH ×3 (07:00→21:21)
[2021-07-26] MEDS: GABAPENTIN 100MG CAPSULE PO SCH ×2 (07:00→17:22)
[2021-07-26] MEDS: FERROUS SULFATE 300MG/5ML UDC PO SCH ×3 (07:00→17:22)
[2021-07-26 08:00] VITALS: BP 168/82
[2021-07-26] MEDS: DEXAMETHASONE 2MG TABLET PO SCH (08:10)
[2021-07-26] MEDS: MIDODRINE HCL 5MG TABLET PO SCH ×2 (08:10→13:00)
[2021-07-26 12:00] VITALS: BP 145/90
[2021-07-26 13:04] LABS: BASOPHILS % 0.1 % (0.0-2.0); EOSINOPHILS % 2.9 % (0.0-5.0); HEMATOCRIT. 35.3 % (36.0-48.0); HEMOGLOBIN. 11.3 g/dL (12.0-16.0); LYMPHOCYTES % 11.2 % (20.0-50.0); MEAN CORPUSCULAR HEMOGLOBIN 32.5 pg (28.0-32.0); MEAN CORPUSCULAR VOLUME 101.4 fL (81.0-99.0); MEAN PLATELET VOLUME 8.1 fl (7.4-10.4); MONOCYTES % 4.7 % (2.0-8.0); NEUTROPHILS % 81.1 % (40.0-76.0); PLATELET 145 x1000/uL (130-400); RED BLOOD CELL COUNT 3.48 mill/uL (4.2-5.4); RED CELL DISTRIBUTION WIDTH 16.5 % (11.6-14.6)
[2021-07-26 13:20] LABS: PHOSPHORUS 7.5 mg/dL (2.5-4.9)
[2021-07-26] MEDS: TRAMADOL 50MG TABLET PO PRN (13:31)
[2021-07-26] MEDS ORDERED: SEVE0.8P3 PO (14:41)
[2021-07-26] MEDS ORDERED: SERT-422 PO (14:51)
[2021-07-26] MEDS ORDERED: CINA30 PO (14:51)
[2021-07-26] MEDS ORDERED: ACYC200C31 PO (14:51)
[2021-07-26] MEDS ORDERED: DIPH1TAB24 PO (14:51)
[2021-07-26] MEDS ORDERED: NEPVIT PO (14:51)
[2021-07-26 16:00] VITALS: BP 142/63
[2021-07-26 20:00] VITALS: BP 131/65
[2021-07-26] MEDS: FAMOTIDINE 20MG TABLET PO SCH (21:21)
[2021-07-27] VITALS: BP 153/63
[2021-07-27 04:00] VITALS: BP 142/50
[2021-07-27] MEDS: HEPARIN 5000 UNITS/ML VIAL SUBCUT SCH ×3 (05:47→22:00)
[2021-07-27] MEDS: GABAPENTIN 100MG CAPSULE PO SCH ×2 (05:47→17:17)
[2021-07-27 08:00] VITALS: BP 140/67
[2021-07-27] MEDS: FERROUS SULFATE 300MG/5ML UDC PO SCH ×3 (09:30→17:17)
[2021-07-27] MEDS: FUROSEMIDE 20MG TABLET PO SCH (09:31)
[2021-07-27] MEDS: TRAMADOL 50MG TABLET PO PRN (09:31)
[2021-07-27] MEDS: DEXAMETHASONE 2MG TABLET PO SCH (09:31)
[2021-07-27 11:07] LABS: BASOPHILS % 0.6 % (0.0-2.0); EOSINOPHILS % 2.7 % (0.0-5.0); HEMATOCRIT. 31.5 % (36.0-48.0); LYMPHOCYTES % 15.8 % (20.0-50.0); MEAN CORPUSCULAR HEMOGLOBIN 32.3 pg (28.0-32.0); MEAN CORPUSCULAR VOLUME 101.8 fL (81.0-99.0); MEAN PLATELET VOLUME 7.8 fl (7.4-10.4); MONOCYTES % 7.6 % (2.0-8.0); NEUTROPHILS % 73.3 % (40.0-76.0); PLATELET 135 x1000/uL (130-400); RED BLOOD CELL COUNT 3.09 mill/uL (4.2-5.4); RED CELL DISTRIBUTION WIDTH 16.8 % (11.6-14.6)
[2021-07-27 12:00] VITALS: BP 149/77
[2021-07-27 12:55] LABS: PHOSPHORUS 7.7 mg/dL (2.5-4.9)
[2021-07-27 16:00] VITALS: BP 160/76
[2021-07-27] MEDS: AMLODIPINE 5MG TABLET PO SCH (19:28)
[2021-07-27 20:00] VITALS: BP 161/71
[2021-07-27] MEDS: FAMOTIDINE 20MG TABLET PO SCH (20:54)
[2021-07-28 04:00] VITALS: BP 171/77
[2021-07-28] MEDS: HYDRALAZINE 20MG/ML VIAL IV PRN (06:00)
[2021-07-28] MEDS: GABAPENTIN 100MG CAPSULE PO SCH ×2 (06:00→18:29)
[2021-07-28] MEDS: HEPARIN 5000 UNITS/ML VIAL SUBCUT SCH ×3 (06:01→22:17)
[2021-07-28 08:00] VITALS: BP 166/76
[2021-07-28] MEDS: AMLODIPINE 5MG TABLET PO SCH (08:56)
[2021-07-28] MEDS: FUROSEMIDE 20MG TABLET PO SCH (08:56)
[2021-07-28] MEDS: DEXAMETHASONE 2MG TABLET PO SCH (08:56)
[2021-07-28] MEDS: FERROUS SULFATE 300MG/5ML UDC PO SCH ×3 (08:56→18:29)
[2021-07-28 12:00] VITALS: BP 142/68
[2021-07-28 16:00] VITALS: BP 147/71
[2021-07-28] MEDS ORDERED: DIPHENHYDRAMINE 50MG/ML VIAL IV NR (16:21)
[2021-07-28] MEDS ORDERED: SODIUM POLYSTYRENE SULFONATE 15 G/60 ML BOT PO NR (16:30)
[2021-07-28 20:00] VITALS: BP 162/70
[2021-07-28] MEDS: FAMOTIDINE 20MG TABLET PO SCH (22:16)
[2021-07-28] MEDS: HYDRALAZINE HCL 10MG TABLET PO SCH (22:17)
[2021-07-29] MEDS: HYDRALAZINE 20MG/ML VIAL IV PRN (03:10)
[2021-07-29 04:00] VITALS: BP 148/75
[2021-07-29] MEDS: GABAPENTIN 100MG CAPSULE PO SCH ×2 (06:44→17:21)
[2021-07-29] MEDS: HYDRALAZINE HCL 10MG TABLET PO SCH ×3 (06:44→22:01)
[2021-07-29] MEDS: FERROUS SULFATE 300MG/5ML UDC PO SCH ×3 (06:45→17:22)
[2021-07-29] MEDS: HEPARIN 5000 UNITS/ML VIAL SUBCUT SCH ×3 (06:45→22:00)
[2021-07-29] MEDS: DIPHENHYDRAMINE 12.5MG/5ML UDC PO PRN ×2 (07:00→20:47)
[2021-07-29 08:00] VITALS: BP 167/74
[2021-07-29] MEDS: DEXAMETHASONE 2MG TABLET PO SCH (09:08)
[2021-07-29] MEDS: FUROSEMIDE 20MG TABLET PO SCH (09:09)
[2021-07-29] MEDS: AMLODIPINE 5MG TABLET PO SCH (09:09)
[2021-07-29 11:30] LABS: BASOPHILS % 0.1 % (0.0-2.0); EOSINOPHILS % 0.1 % (0.0-5.0); LYMPHOCYTES % 7.6 % (20.0-50.0); MEAN CORPUSCULAR HEMOGLOBIN 32.8 pg (28.0-32.0); MEAN CORPUSCULAR VOLUME 98.8 fL (81.0-99.0); MEAN PLATELET VOLUME 8.5 fl (7.4-10.4); MONOCYTES % 4.1 % (2.0-8.0); NEUTROPHILS % 88.1 % (40.0-76.0); PLATELET 161 x1000/uL (130-400); RED BLOOD CELL COUNT 3.34 mill/uL (4.2-5.4); RED CELL DISTRIBUTION WIDTH 15.6 % (11.6-14.6)
[2021-07-29 12:00] VITALS: BP 115/61
[2021-07-29 12:08] LABS: PHOSPHORUS 8.4 mg/dL (2.5-4.9)
[2021-07-29] MEDS: CALCIUM ACETATE 667MG CAPSULE PO SCH ×2 (13:13→17:21)
[2021-07-29 16:00] VITALS: BP 152/84
[2021-07-29] MEDS ORDERED: CLONIDINE 0.1MG TABLET PO PRN (19:00)
[2021-07-29 20:00] VITALS: BP 125/70
[2021-07-29] MEDS: FAMOTIDINE 20MG TABLET PO SCH (20:47)
[2021-07-29] MEDS: MIRTAZAPINE 15MG TABLET PO SCH (21:28)
[2021-07-29] MEDS: ACYCLOVIR 200MG CAPSULE PO SCH (21:28)
[2021-07-29 21:38] LABS: HEPATITIS B SURFACE AB < 3.1 mIU/mL
[2021-07-29 21:50] LABS: HEPATITIS B SURFACE ANTIGEN NEGATIVE
[2021-07-29] MEDS ORDERED: HYDRALAZINE HCL 10MG TABLET PO SCH (22:00)
[2021-07-30 04:00] VITALS: BP 136/69
[2021-07-30] MEDS: GABAPENTIN 100MG CAPSULE PO SCH ×2 (06:50→17:06)
[2021-07-30] MEDS: HEPARIN 5000 UNITS/ML VIAL SUBCUT SCH ×3 (06:51→21:45)
[2021-07-30] MEDS: HYDRALAZINE HCL 10MG TABLET PO SCH ×3 (07:20→21:46)
[2021-07-30 08:00] VITALS: BP 125/64
[2021-07-30] MEDS: CALCIUM ACETATE 667MG CAPSULE PO SCH ×3 (08:53→17:06)
[2021-07-30] MEDS: FUROSEMIDE 20MG TABLET PO SCH (08:53)
[2021-07-30] MEDS: FERROUS SULFATE 300MG/5ML UDC PO SCH ×3 (08:53→17:06)
[2021-07-30] MEDS: ACYCLOVIR 200MG CAPSULE PO SCH ×2 (08:53→21:45)
[2021-07-30] MEDS: AMLODIPINE 5MG TABLET PO SCH (08:53)
[2021-07-30 12:00] VITALS: BP 133/62
[2021-07-30] MEDS: TRAMADOL 50MG TABLET PO PRN (13:13)
[2021-07-30] MEDS: DIPHENHYDRAMINE 12.5MG/5ML UDC PO PRN (15:06)
[2021-07-30 16:00] VITALS: BP 132/59
[2021-07-30 20:00] VITALS: BP 139/66
[2021-07-30] MEDS: MIRTAZAPINE 15MG TABLET PO SCH (21:45)
[2021-07-30] MEDS: FAMOTIDINE 20MG TABLET PO SCH (21:45)
[2021-07-31 04:00] VITALS: BP 122/59
[2021-07-31 06:17] LABS: BASOPHILS % 0.2 % (0.0-2.0); EOSINOPHILS % 1.9 % (0.0-5.0); HEMATOCRIT. 32.6 % (36.0-48.0); HEMOGLOBIN. 10.7 g/dL (12.0-16.0); LYMPHOCYTES % 11.3 % (20.0-50.0); MEAN CORPUSCULAR HEMOGLOBIN 32.4 pg (28.0-32.0); MEAN CORPUSCULAR VOLUME 98.9 fL (81.0-99.0); MEAN PLATELET VOLUME 7.8 fl (7.4-10.4); MONOCYTES % 8.2 % (2.0-8.0); NEUTROPHILS % 78.4 % (40.0-76.0); PLATELET 142 x1000/uL (130-400); RED CELL DISTRIBUTION WIDTH 15.9 % (11.6-14.6)
[2021-07-31] MEDS: CALCIUM ACETATE 667MG CAPSULE PO SCH ×3 (06:17→17:02)
[2021-07-31] MEDS: HYDRALAZINE HCL 10MG TABLET PO SCH ×3 (06:17→22:21)
[2021-07-31] MEDS: GABAPENTIN 100MG CAPSULE PO SCH ×2 (06:17→17:02)
[2021-07-31] MEDS: HEPARIN 5000 UNITS/ML VIAL SUBCUT SCH ×3 (06:17→22:22)
[2021-07-31] MEDS: FERROUS SULFATE 300MG/5ML UDC PO SCH ×3 (06:18→17:02)
[2021-07-31 08:00] VITALS: BP 130/59
[2021-07-31] MEDS: FUROSEMIDE 20MG TABLET PO SCH (10:00)
[2021-07-31] MEDS: AMLODIPINE 5MG TABLET PO SCH (10:01)
[2021-07-31 10:35] VITALS: BP 130/59
[2021-07-31 12:00] VITALS: BP 121/70
[2021-07-31] MEDS: ACYCLOVIR 200MG CAPSULE PO SCH ×2 (12:15→22:21)
[2021-07-31 16:00] VITALS: BP 141/67
[2021-07-31 20:00] VITALS: BP 135/73
[2021-07-31] MEDS ORDERED: IPRATROPIUM/ALBUTEROL 0.5-3(2.5)MG/3ML NEB HHN PRN (20:15)
[2021-07-31] MEDS: MIRTAZAPINE 15MG TABLET PO SCH (22:19)
[2021-07-31] MEDS: FAMOTIDINE 20MG TABLET PO SCH (22:19)
[2021-08-01 04:00] VITALS: BP 155/77
[2021-08-01] MEDS: HYDRALAZINE HCL 10MG TABLET PO SCH ×2 (07:22→14:00)
[2021-08-01] MEDS: FERROUS SULFATE 300MG/5ML UDC PO SCH ×3 (07:22→17:49)
[2021-08-01] MEDS: CALCIUM ACETATE 667MG CAPSULE PO SCH ×3 (07:22→17:49)
[2021-08-01] MEDS: HEPARIN 5000 UNITS/ML VIAL SUBCUT SCH ×2 (07:22→14:15)
[2021-08-01] MEDS: GABAPENTIN 100MG CAPSULE PO SCH ×2 (07:23→17:49)
[2021-08-01 08:00] VITALS: BP 149/76
[2021-08-01 08:33] LABS: BASOPHILS % 0.1 % (0.0-2.0); EOSINOPHILS % 3.9 % (0.0-5.0); HEMATOCRIT. 30.8 % (36.0-48.0); HEMOGLOBIN. 10.3 g/dL (12.0-16.0); LYMPHOCYTES % 12.4 % (20.0-50.0); MEAN CORPUSCULAR HEMOGLOBIN 32.7 pg (28.0-32.0); MEAN PLATELET VOLUME 7.9 fl (7.4-10.4); MONOCYTES % 6.5 % (2.0-8.0); NEUTROPHILS % 77.1 % (40.0-76.0); PLATELET 149 x1000/uL (130-400); RED BLOOD CELL COUNT 3.14 mill/uL (4.2-5.4); RED CELL DISTRIBUTION WIDTH 15.6 % (11.6-14.6)
[2021-08-01] MEDS: AMLODIPINE 5MG TABLET PO SCH (09:23)
[2021-08-01] MEDS: FUROSEMIDE 20MG TABLET PO SCH (09:23)
[2021-08-01] MEDS: ACYCLOVIR 200MG CAPSULE PO SCH (09:23)
[2021-08-01 10:57] LABS: PHOSPHORUS 8.6 mg/dL (2.5-4.9)
[2021-08-01 12:00] VITALS: BP 148/78
[2021-08-01 16:00] VITALS: BP 151/78
[2021-08-01 18:02] VITALS: BP 151/78
[2021-08-04] MEDS ORDERED: DEXAMETHASONE 6MG TABLET PO SCH (09:00)
== END 2021-08-01 21:40 | DRG 177 ==
LOC: ER 11:39 → 7EST 15:51 → ENRESERV 07-26 01:53 → CANRESERV 07-26 03:48 → CANBEDREQ 07-27 00:52
PROVIDERS: ADMIT Internal Medicine; ATTEND Internal Medicine
PROC: 5A1D70Z Performance of Urinary Filtration, Intermittent, Less than 6 Hours Per Day (ICD-10-PCS; 2021-07-26)
PROC: 5A1D70Z Performance of Urinary Filtration, Intermittent, Less than 6 Hours Per Day (ICD-10-PCS; 2021-07-29)
PROC: 5A1D70Z Performance of Urinary Filtration, Intermittent, Less than 6 Hours Per Day (ICD-10-PCS; principal; 2021-08-01)
DX: U07.1 COVID-19 (principal); J12.82 Pneumonia due to coronavirus disease 2019; N18.6 End stage renal disease; I13.2 Hypertensive heart and chronic kidney disease with heart failure and with stage 5 chronic kidney disease, or end stage renal disease; N17.9 Acute kidney failure, unspecified; I69.354 Hemiplegia and hemiparesis following cerebral infarction affecting left non-dominant side; C90.00 Multiple myeloma not having achieved remission; E87.5 Hyperkalemia; E11.22 Type 2 diabetes mellitus with diabetic chronic kidney disease; F17.200 Nicotine dependence, unspecified, uncomplicated; I50.9 Heart failure, unspecified; Z82.49 Family history of ischemic heart disease and other diseases of the circulatory system; Z83.3 Family history of diabetes mellitus; Z87.442 Personal history of urinary calculi; Z99.2 Dependence on renal dialysis; Z79.899 Other long term (current) drug therapy
CPT/HCPCS: 36415; 36600; 71045; 80048; 80053; 82375; 82550; 82728; 82805; 83605; 83615; 83735; 84100; 85025; 85379; 86141; 86705; 86706; 87340; 87426; 93005; 99285; J0360; J1200; J1644; J1940; J3490; J8540; Q0163

== ENCOUNTER 2021-11-03 07:35 | Inpatient (IN) | payer MEDICARE, MEDICAID ==
[~2021-11-03] VITALS: Ht 162.6 cm; Wt 68.0 kg
[~2021-11-03 07:35] MED LIST changes: +ACYC200C31 PO; +CINA30 PO; +DIPH1TAB24 PO; -HYDR-4346 PO; -LIDO700A30 TP; -NEPHRO-VITE PO; +NEPVIT PO; -RENAGEL; -SACC250C PO; +SERT-422 PO; +SEVE0.8P3 PO; -TRAM50TA3 PO; -ZOLP10TA2 PO
[2021-11-03 08:28] LABS: BG BASE EXCESS 1.4 mmol/L (-2.0-2.0); BG CARBOXYHEMOGLOBIN 0.1 % (0.5-1.5); BG DEOXYHEMOGLOBIN 3.1 % (0.0-5.0); BG FRACTION INSPIRED OXYGEN 28; BG HCO3 ACT 24.6 mmol/L (22.0-26.0); BG METHEMOGLOBIN 0.1 % (0.0-1.5); BG OXYGEN SATURATION 96.9 % (92.0-98.5); BG OXYHEMOGLOBIN 96.7 % (94.0-97.0); BG PH 7.477 (7.350-7.450); BG PO2 95.5 mmHg (75.0-100.0); BG SAMPLE SITE RIGHT BRACHIAL; BG TOTAL HEMOGLOBIN 11.3 g/dL (12.0-18.0); BG VENT MODE NASAL CANNULA
[2021-11-03 09:26] LABS: HEMATOCRIT. 35.7 % (36.0-48.0); HEMOGLOBIN. 11.8 g/dL (12.0-16.0); MEAN CORPUSCULAR HEMOGLOBIN 33.7 pg (28.0-32.0); MEAN CORPUSCULAR VOLUME 101.6 fL (81.0-99.0); MEAN PLATELET VOLUME 7.8 fl (7.4-10.4); PLATELET 184 x1000/uL (130-400); RED BLOOD CELL COUNT 3.51 mill/uL (4.2-5.4); RED CELL DISTRIBUTION WIDTH 15.7 % (11.6-14.6)
[2021-11-03] MEDS ORDERED: ACETAMINOPHEN 650MG SUPP PR NR (09:30)
[2021-11-03] MEDS ORDERED: SODIUM CHLORIDE 0.9% 1,000 ML IV ONE ×2 (09:30)
[2021-11-03] MEDS ORDERED: PIPERACILLIN/TAZ 3.375G PREMIX 50 ML IV NR ×2 (09:30→21:00)
[2021-11-03 09:37] LABS: CHLORIDE 100 mEq/L (98-107)
[2021-11-03 09:42] LABS: ETHANOL BLOOD < 10 mg/dL
[2021-11-03 10:11] LABS: PLATELET ESTIMATE NORMAL
[2021-11-03] MEDS ORDERED: ACETAMINOPHEN 325MG TABLET PO PRN (16:30)
[2021-11-03] MEDS ORDERED: GUAIFENESIN 200MG/10ML SUGAR FREE UDC PO PRN (16:30)
[2021-11-03] MEDS ORDERED: DOCUSATE SODIUM 100MG CAPSULE PO PRN (16:30)
[2021-11-03] MEDS ORDERED: IPRATROPIUM/ALBUTEROL 0.5-3(2.5)MG/3ML NEB NEB PRN (16:30)
[2021-11-03] MEDS ORDERED: NITROGLYCERIN 0.4MG TABLET SL SL PRN (16:30)
[2021-11-03] MEDS ORDERED: MAGNESIUM/ALUMINUM HYDROXIDE/SIMETHICONE 30ML UDC PO PRN (16:30)
[2021-11-03] MEDS ORDERED: ZOLPIDEM TARTRATE 5MG TABLET PO PRN (16:30)
[2021-11-03] MEDS ORDERED: CLONIDINE 0.1MG TABLET PO PRN (16:30)
[2021-11-03 17:02] LABS: FOLIC ACID (FOLATE) SERUM >20 ng/mL ng/mL (>5.38)
[2021-11-03 17:13] LABS: VITAMIN B12 SERUM 640 pg/mL (211-911)
[2021-11-03] MEDS ORDERED: VANCOMYCIN 1GM PMX (XELLIA) 200 ML IV NR (18:30)
[2021-11-03 18:32] VITALS: BP 153/65
[2021-11-03] MEDS: ACETAMINOPHEN 650MG SUPP PR PRN (19:03)
[2021-11-03 20:00] VITALS: BP 114/64
[2021-11-03] MEDS: ASCORBIC ACID 500 MG TABLET PO SCH (20:16)
[2021-11-03] MEDS: ENOXAPARIN 30MG/0.3ML SYR SUBCUT SCH (20:16)
[2021-11-03] MEDS: PIPERACILLIN/TAZOBACTAM 3.375 G in DEXTROSE 5% WATER 50 ML IV SCH (20:16)
[2021-11-04] VITALS (7 sets, daily range): BP systolic 92–136; BP diastolic 40–62
[2021-11-04] MEDS: ACETAMINOPHEN 650MG SUPP PR PRN ×2 (00:48→05:33)
[2021-11-04 01:22] LABS: CREATINE KINASE 125 IU/L (26-192)
[2021-11-04 01:23] LABS: CREATINE KINASE MB FRACTION < 1.0 ng/mL (0.5-3.6)
[2021-11-04] MEDS ORDERED: CALC667T6 MT (04:43)
[2021-11-04] MEDS ORDERED: CLON0.1T PO (04:43)
[2021-11-04] MEDS ORDERED: AMIN30LI2 PO (04:43)
[2021-11-04] MEDS ORDERED: MIDO10TA MT (04:43)
[2021-11-04] MEDS ORDERED: IPRA3AMP31 NEB (04:43)
[2021-11-04] MEDS ORDERED: IBUP-2029 PO (04:43)
[2021-11-04] MEDS ORDERED: HYDR-459 MT (04:43)
[2021-11-04] MEDS ORDERED: DIPH25TA24 MT (04:43)
[2021-11-04] MEDS ORDERED: ONDA4TAB5 MT (04:43)
[2021-11-04] MEDS ORDERED: DOCU-150 MT (04:43)
[2021-11-04] MEDS ORDERED: FAMO-135 MT (04:43)
[2021-11-04] MEDS ORDERED: HYDR2TAB7 MT (04:43)
[2021-11-04 06:03] LABS: HEMATOCRIT. 31.3 % (36.0-48.0); HEMOGLOBIN. 10.2 g/dL (12.0-16.0); MEAN CORPUSCULAR HEMOGLOBIN 32.5 pg (28.0-32.0); MEAN CORPUSCULAR VOLUME 100.1 fL (81.0-99.0); MEAN PLATELET VOLUME 7.8 fl (7.4-10.4); PLATELET 146 x1000/uL (130-400); RED BLOOD CELL COUNT 3.13 mill/uL (4.2-5.4); RED CELL DISTRIBUTION WIDTH 15.6 % (11.6-14.6)
[2021-11-04 06:06] LABS: CHLORIDE 98 mEq/L (98-107)
[2021-11-04 06:11] LABS: PHOSPHORUS 4.3 mg/dL (2.5-4.9)
[2021-11-04] MEDS ORDERED: PIPERACILLIN/TAZOBACTAM 3.375 G in DEXTROSE 5% WATER 50 ML IV SCH (09:00)
[2021-11-04] MEDS ORDERED: PANTOPRAZOLE SODIUM 40 MG/VIAL IV SCH (09:00)
[2021-11-04] MEDS: ACETAMINOPHEN 325MG TABLET PO PRN ×2 (09:22→21:03)
[2021-11-04] MEDS: CHOLECALCIFEROL (D3) 1000 UNIT TABLET PO SCH (09:22)
[2021-11-04] MEDS: PIPERACILLIN/TAZOBACTAM 3.375 G in DEXTROSE 5% WATER 50 ML IV SCH ×2 (09:22→21:02)
[2021-11-04] MEDS: ASCORBIC ACID 500 MG TABLET PO SCH (09:22)
[2021-11-04] MEDS: ZINC SULFATE 220 MG ( 50 ) CAPSULE PO SCH (09:23)
[2021-11-04] MEDS ORDERED: IBUPROFEN 200MG TABLET PO PRN (10:00)
[2021-11-04] MEDS ORDERED: SODIUM CHLORIDE 0.9% 500 ML IV ONE (10:00)
[2021-11-04 11:06] LABS: CREATINE KINASE 117 IU/L (26-192); CREATINE KINASE MB FRACTION < 1.0 ng/mL (0.5-3.6)
[2021-11-04 14:49] LABS: CLARITY URINE CLEAR (CLEAR); COLOR URINE YELLOW (YELLOW); KETONES URINE NEGATIVE (NEGATIVE); LEUKOCYTE ESTERASE URINE NEGATIVE (NEGATIVE); NITRITE URINE NEGATIVE (NEGATIVE); OCCULT BLOOD URINE 2+ (NEGATIVE); PROTEIN URINE 3+ (NEGATIVE); SPECIFIC GRAVITY URINE 1.014 (1.005-1.030)
[2021-11-04] MEDS ORDERED: VANCOMYCIN 1.25GM PMX (XELLIA) 250 ML IV NR (15:00)
[2021-11-04 15:21] LABS: *AMPHETAMINES SCREEN URINE NEGATIVE (NEGATIVE); *BARBITURATES SCREEN URINE NEGATIVE (NEGATIVE); *BENZODIAZEPINES SCREEN URINE NEGATIVE (NEGATIVE); *COCAINE SCREEN URINE NEGATIVE (NEGATIVE)
[2021-11-04 15:22] LABS: CANNABINOID URINE SCREEN NEGATIVE (NEGATIVE); METHADONE URINE SCREEN NEGATIVE (NEGATIVE); OPIATES URINE SCREEN PRESUMTIVE POSITIVE (NEGATIVE); PHENCYCLIDINE URINE SCREEN NEGATIVE (NEGATIVE)
[2021-11-04 16:13] LABS: PLATELET ESTIMATE NORMAL
[2021-11-04] MEDS: ENOXAPARIN 30MG/0.3ML SYR SUBCUT SCH (21:02)
[2021-11-04] MEDS: FAMOTIDINE 20MG TABLET PO SCH (21:03)
[2021-11-05] VITALS: BP 103/55
[2021-11-05 04:00] VITALS: BP 103/52
[2021-11-05 05:27] LABS: BASOPHILS % 0.6 % (0.0-2.0); HEMATOCRIT. 29.3 % (36.0-48.0); HEMOGLOBIN. 9.5 g/dL (12.0-16.0); LYMPHOCYTES % 7.5 % (20.0-50.0); MEAN CORPUSCULAR HEMOGLOBIN 32.3 pg (28.0-32.0); MEAN CORPUSCULAR VOLUME 99.4 fL (81.0-99.0); MONOCYTES % 5.4 % (2.0-8.0); NEUTROPHILS % 83.5 % (40.0-76.0); PLATELET 106 x1000/uL (130-400); RED BLOOD CELL COUNT 2.95 mill/uL (4.2-5.4); RED CELL DISTRIBUTION WIDTH 15.7 % (11.6-14.6)
[2021-11-05 05:36] LABS: CHLORIDE 107 mEq/L (98-107)
[2021-11-05 05:44] LABS: PHOSPHORUS 3.8 mg/dL (2.5-4.9)
[2021-11-05 08:00] VITALS: BP 103/50
[2021-11-05] MEDS: ZINC SULFATE 220 MG ( 50 ) CAPSULE PO SCH (09:21)
[2021-11-05] MEDS: CHOLECALCIFEROL (D3) 1000 UNIT TABLET PO SCH (09:21)
[2021-11-05] MEDS: PIPERACILLIN/TAZOBACTAM 3.375 G in DEXTROSE 5% WATER 50 ML IV SCH (09:21)
[2021-11-05] MEDS: FOLIC ACID/VITAMIN B COMP W-C TABLET PO SCH (09:21)
[2021-11-05] MEDS ORDERED: NALOXONE HCL 0.4MG/ML VIAL IV PRN (10:45)
[2021-11-05] MEDS: TRAMADOL 50MG TABLET PO PRN (11:41)
[2021-11-05 16:00] VITALS: BP 110/55
[2021-11-05 20:00] VITALS: BP 110/57
[2021-11-05] MEDS: FAMOTIDINE 20MG TABLET PO SCH (21:45)
[2021-11-05] MEDS: ENOXAPARIN 30MG/0.3ML SYR SUBCUT SCH (21:45)
[2021-11-06] VITALS: BP 135/54
[2021-11-06 04:00] VITALS: BP 115/58
[2021-11-06 04:44] LABS: BASOPHILS % 0.5 % (0.0-2.0); EOSINOPHILS % 4.8 % (0.0-5.0); HEMATOCRIT. 26.9 % (36.0-48.0); HEMOGLOBIN. 8.6 g/dL (12.0-16.0); LYMPHOCYTES % 11.8 % (20.0-50.0); MEAN CORPUSCULAR HEMOGLOBIN 31.8 pg (28.0-32.0); MEAN CORPUSCULAR VOLUME 99.3 fL (81.0-99.0); MEAN PLATELET VOLUME 8.3 fl (7.4-10.4); MONOCYTES % 6.5 % (2.0-8.0); NEUTROPHILS % 76.4 % (40.0-76.0); PLATELET 115 x1000/uL (130-400); RED BLOOD CELL COUNT 2.71 mill/uL (4.2-5.4); RED CELL DISTRIBUTION WIDTH 15.6 % (11.6-14.6)
[2021-11-06 05:01] LABS: CHLORIDE 104 mEq/L (98-107)
[2021-11-06 05:10] LABS: PHOSPHORUS 3.2 mg/dL (2.5-4.9)
[2021-11-06 08:00] VITALS: BP 108/60
[2021-11-06] MEDS: ZINC SULFATE 220 MG ( 50 ) CAPSULE PO SCH (09:05)
[2021-11-06] MEDS: FOLIC ACID/VITAMIN B COMP W-C TABLET PO SCH (09:05)
[2021-11-06] MEDS: CHOLECALCIFEROL (D3) 1000 UNIT TABLET PO SCH (09:05)
[2021-11-06 12:00] VITALS: BP 123/75
[2021-11-06] MEDS ORDERED: LIDOCAINE HCL 1% 20ML VIAL (Pyxis) INJ ONE (12:51)
[2021-11-06 16:00] VITALS: BP 124/67
[2021-11-06] MEDS: AMPICILLIN 2,000 MG in SODIUM CHLORIDE 0.9% 100 ML IV SCH (18:15)
[2021-11-06 20:00] VITALS: BP 140/76
[2021-11-06] MEDS: FAMOTIDINE 20MG TABLET PO SCH (21:33)
[2021-11-06] MEDS: ENOXAPARIN 30MG/0.3ML SYR SUBCUT SCH (21:33)
[2021-11-07] VITALS: BP 151/86
[2021-11-07 04:00] VITALS: BP 136/83
[2021-11-07] MEDS: AMPICILLIN 2,000 MG in SODIUM CHLORIDE 0.9% 100 ML IV SCH ×2 (06:36→17:00)
[2021-11-07 06:43] LABS: HEMATOCRIT. 28.7 % (36.0-48.0); HEMOGLOBIN. 9.3 g/dL (12.0-16.0); MEAN CORPUSCULAR HEMOGLOBIN 32.1 pg (28.0-32.0); MEAN CORPUSCULAR VOLUME 99.1 fL (81.0-99.0); MEAN PLATELET VOLUME 8.2 fl (7.4-10.4); PLATELET 117 x1000/uL (130-400); RED BLOOD CELL COUNT 2.89 mill/uL (4.2-5.4)
[2021-11-07 07:42] LABS: PHOSPHORUS 3.4 mg/dL (2.5-4.9)
[2021-11-07 08:10] VITALS: BP 158/81
[2021-11-07] MEDS ORDERED: LIDOCAINE HCL 1% 20ML VIAL (Pyxis) INJ ONE ×2 (08:41→14:16)
[2021-11-07] MEDS: CHOLECALCIFEROL (D3) 1000 UNIT TABLET PO SCH (10:09)
[2021-11-07] MEDS: FOLIC ACID/VITAMIN B COMP W-C TABLET PO SCH (10:09)
[2021-11-07] MEDS: ZINC SULFATE 220 MG ( 50 ) CAPSULE PO SCH (10:09)
[2021-11-07 10:38] LABS: PLATELET ESTIMATE SLIGHTLY DECREASED
[2021-11-07 12:15] VITALS: BP 117/85
[2021-11-07 12:46] LABS: PROTHROMBIN TIME 10.9 sec (9.6-11.0)
[2021-11-07 16:05] VITALS: BP 122/65
[2021-11-07] MEDS: TRAMADOL 50MG TABLET PO PRN (17:01)
[2021-11-07 20:00] VITALS: BP 136/76
[2021-11-07] MEDS: FAMOTIDINE 20MG TABLET PO SCH (21:52)
[2021-11-07] MEDS: EPOETIN ALFA 4000UNITS/ML VIAL SUBCUT SCH (21:52)
[2021-11-07] MEDS: DIPHENHYDRAMINE 50MG/ML VIAL IV PRN (22:00)
[2021-11-08] VITALS: BP 150/78
[2021-11-08 04:00] VITALS: BP 142/70
[2021-11-08] MEDS: AMPICILLIN 2,000 MG in SODIUM CHLORIDE 0.9% 100 ML IV SCH ×2 (05:22→19:02)
[2021-11-08 07:50] VITALS: BP 150/79
[2021-11-08] MEDS: ZINC SULFATE 220 MG ( 50 ) CAPSULE PO SCH (08:14)
[2021-11-08] MEDS: CHOLECALCIFEROL (D3) 1000 UNIT TABLET PO SCH (08:14)
[2021-11-08] MEDS: FOLIC ACID/VITAMIN B COMP W-C TABLET PO SCH (08:14)
[2021-11-08 11:52] LABS: HEMATOCRIT. 27.3 % (36.0-48.0); HEMOGLOBIN. 8.9 g/dL (12.0-16.0); MEAN CORPUSCULAR VOLUME 98.4 fL (81.0-99.0); MEAN PLATELET VOLUME 8.5 fl (7.4-10.4); PLATELET 121 x1000/uL (130-400); RED BLOOD CELL COUNT 2.78 mill/uL (4.2-5.4); RED CELL DISTRIBUTION WIDTH 15.1 % (11.6-14.6)
[2021-11-08 11:55] VITALS: BP 137/76
[2021-11-08] MEDS: TRAMADOL 50MG TABLET PO PRN (12:47)
[2021-11-08 14:39] LABS: PLATELET ESTIMATE SLIGHTLY DECREASED
[2021-11-08 16:40] VITALS: BP 136/59
[2021-11-08 20:00] VITALS: BP 129/72
[2021-11-08] MEDS: FAMOTIDINE 20MG TABLET PO SCH (21:31)
[2021-11-09] VITALS: BP 148/81
[2021-11-09 04:00] VITALS: BP 142/77
[2021-11-09] MEDS: AMPICILLIN 2,000 MG in SODIUM CHLORIDE 0.9% 100 ML IV SCH ×2 (05:29→17:56)
[2021-11-09] MEDS: TRAMADOL 50MG TABLET PO PRN ×2 (05:38→18:01)
[2021-11-09 08:00] VITALS: BP 137/81
[2021-11-09] MEDS: ZINC SULFATE 220 MG ( 50 ) CAPSULE PO SCH (08:39)
[2021-11-09] MEDS: FOLIC ACID/VITAMIN B COMP W-C TABLET PO SCH (08:39)
[2021-11-09] MEDS: CHOLECALCIFEROL (D3) 1000 UNIT TABLET PO SCH (08:40)
[2021-11-09 10:23] LABS: HEMATOCRIT. 29.3 % (36.0-48.0); HEMOGLOBIN. 9.7 g/dL (12.0-16.0); MEAN CORPUSCULAR HEMOGLOBIN 32.6 pg (28.0-32.0); MEAN CORPUSCULAR VOLUME 98.5 fL (81.0-99.0); MEAN PLATELET VOLUME 8.4 fl (7.4-10.4); PLATELET 153 x1000/uL (130-400); RED BLOOD CELL COUNT 2.98 mill/uL (4.2-5.4); RED CELL DISTRIBUTION WIDTH 15.1 % (11.6-14.6)
[2021-11-09 10:43] LABS: PHOSPHORUS 3.2 mg/dL (2.5-4.9)
[2021-11-09 10:49] LABS: PLATELET ESTIMATE NORMAL
[2021-11-09 12:00] VITALS: BP 134/61
[2021-11-09 16:00] VITALS: BP 114/49
[2021-11-09 20:00] VITALS: BP 152/80
[2021-11-09] MEDS: FAMOTIDINE 20MG TABLET PO SCH (21:00)
[2021-11-09 22:06] LABS: HEPATITIS B SURFACE ANTIGEN NEGATIVE
[2021-11-09] MEDS: EPOETIN ALFA 4000UNITS/ML VIAL SUBCUT SCH (22:38)
[2021-11-10] VITALS (7 sets, daily range): BP systolic 123–161; BP diastolic 53–82
[2021-11-10] MEDS: TRAMADOL 50MG TABLET PO PRN (04:54)
[2021-11-10] MEDS: AMPICILLIN 2,000 MG in SODIUM CHLORIDE 0.9% 100 ML IV SCH ×2 (05:55→19:12)
[2021-11-10] MEDS: CHOLECALCIFEROL (D3) 1000 UNIT TABLET PO SCH (09:05)
[2021-11-10] MEDS: FOLIC ACID/VITAMIN B COMP W-C TABLET PO SCH (09:05)
[2021-11-10] MEDS: ZINC SULFATE 220 MG ( 50 ) CAPSULE PO SCH (09:06)
[2021-11-10] MEDS: ACETAMINOPHEN 325MG TABLET PO PRN (11:38)
[2021-11-10] MEDS: DIPHENHYDRAMINE 50MG/ML VIAL IV PRN (11:38)
[2021-11-10] MEDS: FAMOTIDINE 20MG TABLET PO SCH (20:21)
[2021-11-11] VITALS (7 sets, daily range): BP systolic 120–152; BP diastolic 57–90
[2021-11-11] MEDS: AMPICILLIN 2,000 MG in SODIUM CHLORIDE 0.9% 100 ML IV SCH ×2 (06:11→20:10)
[2021-11-11] MEDS: ACETAMINOPHEN 325MG TABLET PO PRN ×2 (08:04→21:14)
[2021-11-11] MEDS: DIPHENHYDRAMINE 50MG/ML VIAL IV PRN ×2 (08:05→21:14)
[2021-11-11] MEDS: CHOLECALCIFEROL (D3) 1000 UNIT TABLET PO SCH (09:53)
[2021-11-11] MEDS: ZINC SULFATE 220 MG ( 50 ) CAPSULE PO SCH (09:53)
[2021-11-11] MEDS: FOLIC ACID/VITAMIN B COMP W-C TABLET PO SCH (09:53)
[2021-11-11 19:07] LABS: HEMATOCRIT. 27.1 % (36.0-48.0); HEMOGLOBIN. 8.9 g/dL (12.0-16.0); MEAN CORPUSCULAR HEMOGLOBIN 32.4 pg (28.0-32.0); MEAN CORPUSCULAR VOLUME 98.4 fL (81.0-99.0); PLATELET 201 x1000/uL (130-400); RED BLOOD CELL COUNT 2.76 mill/uL (4.2-5.4); RED CELL DISTRIBUTION WIDTH 15.4 % (11.6-14.6)
[2021-11-11 19:13] LABS: PHOSPHORUS 2.1 mg/dL (2.5-4.9)
[2021-11-11] MEDS: FAMOTIDINE 20MG TABLET PO SCH (20:35)
[2021-11-11] MEDS: EPOETIN ALFA 4000UNITS/ML VIAL SUBCUT SCH (20:35)
[2021-11-11 20:55] LABS: PLATELET ESTIMATE NORMAL
[2021-11-12] MEDS: ONDANSETRON HCL 4MG/2ML INJ IV PRN ×2 (01:40→13:22)
[2021-11-12 04:00] VITALS: BP 144/73
[2021-11-12] MEDS: AMPICILLIN 2,000 MG in SODIUM CHLORIDE 0.9% 100 ML IV SCH ×2 (06:09→17:21)
[2021-11-12 07:51] LABS: HEMATOCRIT. 27.7 % (36.0-48.0); HEMOGLOBIN. 8.8 g/dL (12.0-16.0); MEAN CORPUSCULAR HEMOGLOBIN 32.6 pg (28.0-32.0); MEAN CORPUSCULAR VOLUME 102.9 fL (81.0-99.0); MEAN PLATELET VOLUME 7.6 fl (7.4-10.4); PLATELET 202 x1000/uL (130-400); RED BLOOD CELL COUNT 2.69 mill/uL (4.2-5.4); RED CELL DISTRIBUTION WIDTH 15.8 % (11.6-14.6)
[2021-11-12 08:00] VITALS: BP 133/70
[2021-11-12 08:27] LABS: PHOSPHORUS 2.7 mg/dL (2.5-4.9)
[2021-11-12] MEDS: CHOLECALCIFEROL (D3) 1000 UNIT TABLET PO SCH (09:12)
[2021-11-12] MEDS: FOLIC ACID/VITAMIN B COMP W-C TABLET PO SCH (09:12)
[2021-11-12] MEDS: ZINC SULFATE 220 MG ( 50 ) CAPSULE PO SCH (09:12)
[2021-11-12 10:49] LABS: PLATELET ESTIMATE NORMAL
[2021-11-12 12:00] VITALS: BP 153/82
[2021-11-12] MEDS: ACETAMINOPHEN 325MG TABLET PO PRN (13:21)
[2021-11-12] MEDS: DIPHENHYDRAMINE 50MG/ML VIAL IV PRN (13:22)
[2021-11-12 16:00] VITALS: BP 144/75
[2021-11-12 20:45] VITALS: BP 144/81
[2021-11-12] MEDS: FAMOTIDINE 20MG TABLET PO SCH (21:00)
[2021-11-13] VITALS: BP 154/58
[2021-11-13 04:00] VITALS: BP 159/66
[2021-11-13] MEDS: AMPICILLIN 2,000 MG in SODIUM CHLORIDE 0.9% 100 ML IV SCH ×2 (06:16→18:24)
[2021-11-13 08:30] VITALS: BP 148/96
[2021-11-13] MEDS: FOLIC ACID/VITAMIN B COMP W-C TABLET PO SCH (10:03)
[2021-11-13] MEDS: CHOLECALCIFEROL (D3) 1000 UNIT TABLET PO SCH (10:03)
[2021-11-13] MEDS: ZINC SULFATE 220 MG ( 50 ) CAPSULE PO SCH (10:03)
[2021-11-13 10:26] LABS: HEMATOCRIT. 30.6 % (36.0-48.0); HEMOGLOBIN. 9.9 g/dL (12.0-16.0); MEAN CORPUSCULAR HEMOGLOBIN 32.6 pg (28.0-32.0); MEAN CORPUSCULAR VOLUME 101.2 fL (81.0-99.0); MEAN PLATELET VOLUME 7.8 fl (7.4-10.4); PLATELET 251 x1000/uL (130-400); RED BLOOD CELL COUNT 3.03 mill/uL (4.2-5.4); RED CELL DISTRIBUTION WIDTH 15.6 % (11.6-14.6)
[2021-11-13 10:57] LABS: PHOSPHORUS 4.1 mg/dL (2.5-4.9)
[2021-11-13 12:30] VITALS: BP 152/86
[2021-11-13] MEDS: LOPERAMIDE HCL 2MG CAPSULE PO PRN ×2 (14:20→20:59)
[2021-11-13 14:48] LABS: PLATELET ESTIMATE NORMAL
[2021-11-13 16:01] VITALS: BP 146/82
[2021-11-13] MEDS: ONDANSETRON HCL 4MG/2ML INJ IV PRN ×2 (18:34→21:00)
[2021-11-13 20:00] VITALS: BP 156/63
[2021-11-13] MEDS: FAMOTIDINE 20MG TABLET PO SCH (20:13)
[2021-11-14 04:00] VITALS: BP 148/70
[2021-11-14 08:20] VITALS: BP 148/87
[2021-11-14] MEDS: LOPERAMIDE HCL 2MG CAPSULE PO PRN (09:34)
[2021-11-14] MEDS: CHOLECALCIFEROL (D3) 1000 UNIT TABLET PO SCH (09:34)
[2021-11-14] MEDS: ZINC SULFATE 220 MG ( 50 ) CAPSULE PO SCH (09:34)
[2021-11-14] MEDS: FOLIC ACID/VITAMIN B COMP W-C TABLET PO SCH (09:34)
[2021-11-14 12:22] VITALS: BP 155/94
[2021-11-14] MEDS: POLYVINYL ALCOHOL OPHTH DROPS 15ML BOTHEYE SCH ×2 (12:37→19:15)
[2021-11-14] MEDS: DIPHENHYDRAMINE 50MG/ML VIAL IV PRN (12:37)
[2021-11-14] MEDS: VANCOMYCIN 1000MG/20ML ORAL SOLN PO SCH ×2 (12:37→19:15)
[2021-11-14 14:00] VITALS: BP 162/92
[2021-11-14 14:04] LABS: BASOPHILS % 0.4 % (0.0-2.0); EOSINOPHILS % 1.9 % (0.0-5.0); HEMATOCRIT. 36.3 % (36.0-48.0); HEMOGLOBIN. 10.9 g/dL (12.0-16.0); LYMPHOCYTES % 18.3 % (20.0-50.0); MEAN CORPUSCULAR HEMOGLOBIN 31.6 pg (28.0-32.0); MEAN PLATELET VOLUME 8.3 fl (7.4-10.4); MONOCYTES % 7.1 % (2.0-8.0); NEUTROPHILS % 72.3 % (40.0-76.0); PLATELET 256 x1000/uL (130-400); RED BLOOD CELL COUNT 3.46 mill/uL (4.2-5.4); RED CELL DISTRIBUTION WIDTH 16.5 % (11.6-14.6)
[2021-11-14 14:06] LABS: MEAN CORPUSCULAR VOLUME 105.1 fL (81.0-99.0)
[2021-11-14 15:47] VITALS: BP 162/92
[2021-11-14] MEDS: AMPICILLIN 2,000 MG in SODIUM CHLORIDE 0.9% 100 ML IV SCH (19:16)
[2021-11-14 20:00] VITALS: BP 133/76
[2021-11-14] MEDS ORDERED: EPOETIN ALFA-EPBX 4,000 UNIT/ML VIAL SUBCUT SCH (21:00)
[2021-11-14] MEDS: FAMOTIDINE 20MG TABLET PO SCH (22:01)
[2021-11-15] VITALS: BP 147/85
[2021-11-15] MEDS: POLYVINYL ALCOHOL OPHTH DROPS 15ML BOTHEYE SCH ×3 (00:48→16:44)
[2021-11-15] MEDS: VANCOMYCIN 1000MG/20ML ORAL SOLN PO SCH ×3 (00:48→16:44)
[2021-11-15 04:00] VITALS: BP 120/62
[2021-11-15] MEDS: AMPICILLIN 2,000 MG in SODIUM CHLORIDE 0.9% 100 ML IV SCH (06:44)
[2021-11-15 08:00] VITALS: BP 142/83
[2021-11-15] MEDS: ZINC SULFATE 220 MG ( 50 ) CAPSULE PO SCH (09:02)
[2021-11-15] MEDS: CHOLECALCIFEROL (D3) 1000 UNIT TABLET PO SCH (09:02)
[2021-11-15] MEDS: FOLIC ACID/VITAMIN B COMP W-C TABLET PO SCH (09:02)
[2021-11-15 12:00] VITALS: BP 132/85
[2021-11-15 16:00] VITALS: BP 155/89
[2021-11-15] MEDS: LOPERAMIDE HCL 2MG CAPSULE PO PRN (16:48)
[2021-11-15 17:31] VITALS: BP 155/89
== END 2021-11-15 18:40 | DRG 871 ==
LOC: ER 07:35 → EDBEDREQ 13:22 → 6WST 14:04 → ENRESERV 14:11 → SUPCPDRO 16:20
PROVIDERS: ADMIT Internal Medicine; ATTEND Internal Medicine
PROC: 5A1D70Z Performance of Urinary Filtration, Intermittent, Less than 6 Hours Per Day (ICD-10-PCS; 2021-11-04)
PROC: 5A1D70Z Performance of Urinary Filtration, Intermittent, Less than 6 Hours Per Day (ICD-10-PCS; principal; 2021-11-07)
PROC: 5A1D70Z Performance of Urinary Filtration, Intermittent, Less than 6 Hours Per Day (ICD-10-PCS; 2021-11-09)
PROC: 5A1D70Z Performance of Urinary Filtration, Intermittent, Less than 6 Hours Per Day (ICD-10-PCS; 2021-11-11)
PROC: 5A1D70Z Performance of Urinary Filtration, Intermittent, Less than 6 Hours Per Day (ICD-10-PCS; 2021-11-14)
DX: A40.8 Other streptococcal sepsis (principal); N18.6 End stage renal disease; J96.21 Acute and chronic respiratory failure with hypoxia; J69.0 Pneumonitis due to inhalation of food and vomit; G92.8 Other toxic encephalopathy; I13.2 Hypertensive heart and chronic kidney disease with heart failure and with stage 5 chronic kidney disease, or end stage renal disease; C90.00 Multiple myeloma not having achieved remission; E87.1 Hypo-osmolality and hyponatremia; I69.354 Hemiplegia and hemiparesis following cerebral infarction affecting left non-dominant side; I50.42 Chronic combined systolic (congestive) and diastolic (congestive) heart failure; K76.6 Portal hypertension; E11.22 Type 2 diabetes mellitus with diabetic chronic kidney disease; I07.1 Rheumatic tricuspid insufficiency; I27.21 Secondary pulmonary arterial hypertension; E78.5 Hyperlipidemia, unspecified; D63.8 Anemia in other chronic diseases classified elsewhere; D69.6 Thrombocytopenia, unspecified; F12.10 Cannabis abuse, uncomplicated; F10.10 Alcohol abuse, uncomplicated; R65.20 Severe sepsis without septic shock; Z20.822 Contact with and (suspected) exposure to COVID-19; K74.60 Unspecified cirrhosis of liver; N20.0 Calculus of kidney; Z82.49 Family history of ischemic heart disease and other diseases of the circulatory system; Z86.14 Personal history of Methicillin resistant Staphylococcus aureus infection; Z86.16 Personal history of COVID-19; Z87.01 Personal history of pneumonia (recurrent); Z87.442 Personal history of urinary calculi; Z99.2 Dependence on renal dialysis; Z99.81 Dependence on supplemental oxygen; Z92.21 Personal history of antineoplastic chemotherapy; Z87.891 Personal history of nicotine dependence; Z79.899 Other long term (current) drug therapy
CPT/HCPCS: 36415; 36600; 71045; 74177; 80048; 80053; 80061; 80202; 80305; 80320; 81003; 82140; 82375; 82550; 82553; 82607; 82746; 82805; 83036; 83540; 83550; 83605; 83735; 83880; 84100; 84439; 84443; 84484; 85025; 85651; 86140; 86705; 86709; 86803; 87077; 87186; 87340; 87426; 93005; 93306; 93970; 99291; C9113; J0290; J0885; J1200; J1650; J2405; J2543; J3370; J3490; J7050; J7060; G0480

== ENCOUNTER 2021-12-20 07:44 | Inpatient (IN) | payer MEDICARE, MEDICAID ==
[~2021-12-20] VITALS: Ht 157.5 cm; Wt 69.4 kg
[~2021-12-20 07:44] MED LIST changes: +AMIN30LI2 PO; -ASPI-1497 PO; +CALC667T6 MT; +CLON0.1T PO; -DIPH1TAB24 PO; +DIPH25TA24 MT; +DOCU-150 MT; +FAMO-135 MT; +HYDR-459 MT; +HYDR2TAB7 MT; +IBUP-2029 PO; +IPRA3AMP31 NEB; -MIRT-89 PO; +ONDA4TAB5 MT; -SACU1TAB7 MT; -SEVE0.8P3 PO
[2021-12-20] MEDS ORDERED: SODIUM CHLORIDE 0.9% 1000ML BAG (SEPSIS BOLUS) IV ONE (08:15)
[2021-12-20 08:32] LABS: BASOPHILS % 0.8 % (0.0-2.0); EOSINOPHILS % 6.2 % (0.0-5.0); HEMATOCRIT. 31.4 % (36.0-48.0); HEMOGLOBIN. 10.2 g/dL (12.0-16.0); LYMPHOCYTES % 16.9 % (20.0-50.0); MEAN CORPUSCULAR HEMOGLOBIN 31.2 pg (28.0-32.0); MEAN CORPUSCULAR VOLUME 96.5 fL (81.0-99.0); MONOCYTES % 8.8 % (2.0-8.0); NEUTROPHILS % 67.3 % (40.0-76.0); PLATELET 198 x1000/uL (130-400); RED BLOOD CELL COUNT 3.26 mill/uL (4.2-5.4); RED CELL DISTRIBUTION WIDTH 14.9 % (11.6-14.6)
[2021-12-20 08:43] LABS: CHLORIDE 102 mEq/L (98-107)
[2021-12-20] MEDS ORDERED: IPRATROPIUM/ALBUTEROL 0.5-3(2.5)MG/3ML NEB HHN PRN (14:15)
[2021-12-20] MEDS ORDERED: CEFTRIAXONE 1 G PREMIX 50 ML IV NR (14:15)
[2021-12-20] MEDS ORDERED: ACETAMINOPHEN 325MG TABLET PO PRN (14:15)
[2021-12-20] MEDS ORDERED: GUAIFENESIN 200MG/10ML SUGAR FREE UDC PO PRN (14:15)
[2021-12-20] MEDS ORDERED: ACETAMINOPHEN 650MG SUPP PR PRN (14:15)
[2021-12-20] MEDS ORDERED: DOCUSATE SODIUM 100MG CAPSULE PO PRN (14:15)
[2021-12-20 16:30] VITALS: BP 118/59
[2021-12-20] MEDS ORDERED: VANCOMYCIN 1.25GM PMX (XELLIA) 250 ML IV NR (17:00)
[2021-12-20 17:26] VITALS: BP 118/59
[2021-12-20 20:00] VITALS: BP 110/76
[2021-12-21] VITALS: BP 107/82
[2021-12-21 04:00] VITALS: BP 110/80
[2021-12-21 08:00] VITALS: BP 123/44
[2021-12-21 08:32] LABS: BASOPHILS % 0.6 % (0.0-2.0); EOSINOPHILS % 6.1 % (0.0-5.0); HEMATOCRIT. 29.7 % (36.0-48.0); HEMOGLOBIN. 9.4 g/dL (12.0-16.0); LYMPHOCYTES % 25.9 % (20.0-50.0); MEAN CORPUSCULAR HEMOGLOBIN 31.4 pg (28.0-32.0); MEAN CORPUSCULAR VOLUME 99.3 fL (81.0-99.0); MONOCYTES % 7.3 % (2.0-8.0); NEUTROPHILS % 60.1 % (40.0-76.0); PLATELET 174 x1000/uL (130-400); RED BLOOD CELL COUNT 2.99 mill/uL (4.2-5.4); RED CELL DISTRIBUTION WIDTH 14.7 % (11.6-14.6)
[2021-12-21 08:49] LABS: PHOSPHORUS 4.6 mg/dL (2.5-4.9)
[2021-12-21] MEDS: FOLIC ACID/VITAMIN B COMP W-C TABLET PO SCH (09:15)
[2021-12-21] MEDS ORDERED: LIDOCAINE HCL/PF 1% 10 MG/ML 5ML VIAL ONE (10:45)
[2021-12-21 12:00] VITALS: BP 120/60
[2021-12-21] MEDS ORDERED: HEPARIN 100 UNITS/1 ML VIAL IVF PRN (12:30)
[2021-12-21] MEDS: CEFTRIAXONE 1,000 MG in DEXTROSE 5% WATER 50 ML IV SCH (14:06)
[2021-12-21 16:00] VITALS: BP 156/71
[2021-12-21] MEDS ORDERED: HYDRALAZINE 20MG/ML VIAL IV NR (16:30)
[2021-12-21 16:52] LABS: HEPATITIS B SURFACE ANTIGEN NEGATIVE
[2021-12-21 20:00] VITALS: BP 145/70
[2021-12-21] MEDS ORDERED: NALOXONE HCL 0.4MG/ML VIAL IV PRN (20:15)
[2021-12-21] MEDS: MUPIROCIN 2% OINT 22GM NS SCH (20:22)
[2021-12-21] MEDS: HYDROCODONE/ACETAMINOPHEN 5/325MG TABLET PO PRN (20:25)
[2021-12-21] MEDS: EPOETIN ALFA-EPBX 4,000 UNIT/ML VIAL SUBCUT SCH (21:01)
[2021-12-22] VITALS: BP 139/72
[2021-12-22] MEDS: HYDROCODONE/ACETAMINOPHEN 5/325MG TABLET PO PRN ×3 (00:47→21:05)
[2021-12-22] MEDS: DIPHENHYDRAMINE HCL/ZINC ACET 28 GM CREAM TOP PRN ×2 (03:21→18:21)
[2021-12-22 04:00] VITALS: BP 137/71
[2021-12-22 06:55] LABS: BASOPHILS % 0.3 % (0.0-2.0); EOSINOPHILS % 6.7 % (0.0-5.0); HEMATOCRIT. 27.7 % (36.0-48.0); LYMPHOCYTES % 19.7 % (20.0-50.0); MEAN CORPUSCULAR HEMOGLOBIN 31.3 pg (28.0-32.0); MEAN PLATELET VOLUME 7.9 fl (7.4-10.4); MONOCYTES % 8.3 % (2.0-8.0); PLATELET 168 x1000/uL (130-400); RED BLOOD CELL COUNT 2.88 mill/uL (4.2-5.4); RED CELL DISTRIBUTION WIDTH 14.7 % (11.6-14.6)
[2021-12-22 07:36] VITALS: BP 151/64
[2021-12-22] MEDS: FOLIC ACID/VITAMIN B COMP W-C TABLET PO SCH (09:03)
[2021-12-22] MEDS: CEFTRIAXONE 1,000 MG in DEXTROSE 5% WATER 50 ML IV SCH (09:03)
[2021-12-22] MEDS: MUPIROCIN 2% OINT 22GM NS SCH ×2 (09:03→21:04)
[2021-12-22 12:05] VITALS: BP 145/64
[2021-12-22 16:08] VITALS: BP 145/60
[2021-12-22] MEDS: MEGESTROL ACETATE 400 MG/10 ML UDC PO SCH ×2 (18:12→21:06)
[2021-12-22 20:00] VITALS: BP 157/61
[2021-12-22] MEDS: MIRTAZAPINE 15MG TABLET PO SCH (21:06)
[2021-12-23] VITALS (7 sets, daily range): BP systolic 117–158; BP diastolic 47–77
[2021-12-23 06:31] LABS: BASOPHILS % 0.6 % (0.0-2.0); EOSINOPHILS % 6.8 % (0.0-5.0); HEMATOCRIT. 28.4 % (36.0-48.0); HEMOGLOBIN. 9.1 g/dL (12.0-16.0); LYMPHOCYTES % 22.2 % (20.0-50.0); MEAN CORPUSCULAR HEMOGLOBIN 31.4 pg (28.0-32.0); MEAN PLATELET VOLUME 8.7 fl (7.4-10.4); MONOCYTES % 8.1 % (2.0-8.0); NEUTROPHILS % 62.3 % (40.0-76.0); PLATELET 161 x1000/uL (130-400); RED CELL DISTRIBUTION WIDTH 15.1 % (11.6-14.6)
[2021-12-23 06:55] LABS: PHOSPHORUS 3.6 mg/dL (2.5-4.9)
[2021-12-23] MEDS: CEFTRIAXONE 1,000 MG in DEXTROSE 5% WATER 50 ML IV SCH (08:44)
[2021-12-23] MEDS: DIPHENHYDRAMINE HCL/ZINC ACET 28 GM CREAM TOP PRN ×2 (08:44→23:15)
[2021-12-23] MEDS: MUPIROCIN 2% OINT 22GM NS SCH ×2 (08:44→20:50)
[2021-12-23] MEDS: MEGESTROL ACETATE 400 MG/10 ML UDC PO SCH ×4 (08:44→20:50)
[2021-12-23] MEDS: HYDROCODONE/ACETAMINOPHEN 5/325MG TABLET PO PRN ×2 (08:45→20:57)
[2021-12-23] MEDS: FOLIC ACID/VITAMIN B COMP W-C TABLET PO SCH (08:45)
[2021-12-23] MEDS: MIRTAZAPINE 15MG TABLET PO SCH (20:50)
[2021-12-23] MEDS: EPOETIN ALFA-EPBX 4,000 UNIT/ML VIAL SUBCUT SCH (20:50)
[2021-12-23 22:59] LABS: VITAMIN B12 SERUM 735 pg/mL (211-911)
[2021-12-24 04:00] VITALS: BP 144/59
[2021-12-24 08:00] VITALS: BP 141/69
[2021-12-24] MEDS: CEFTRIAXONE 1,000 MG in DEXTROSE 5% WATER 50 ML IV SCH (09:40)
[2021-12-24] MEDS: MEGESTROL ACETATE 400 MG/10 ML UDC PO SCH ×4 (09:40→21:24)
[2021-12-24] MEDS: MUPIROCIN 2% OINT 22GM NS SCH ×2 (09:41→21:24)
[2021-12-24] MEDS: FOLIC ACID/VITAMIN B COMP W-C TABLET PO SCH (09:42)
[2021-12-24] MEDS: DIPHENHYDRAMINE HCL/ZINC ACET 28 GM CREAM TOP PRN ×2 (09:52→21:32)
[2021-12-24] MEDS: HYDROCODONE/ACETAMINOPHEN 5/325MG TABLET PO PRN (09:59)
[2021-12-24 16:00] VITALS: BP 133/67
[2021-12-24] MEDS: DIPHENHYDRAMINE 25MG CAPSULE PO PRN (16:11)
[2021-12-24 20:00] VITALS: BP_SYST 158; BP_SYST 162; BP_DIAS 65; BP_DIAS 66
[2021-12-24] MEDS: MIRTAZAPINE 15MG TABLET PO SCH (21:24)
[2021-12-25] VITALS (8 sets, daily range): BP systolic 139–165; BP diastolic 50–78
[2021-12-25] MEDS: DIPHENHYDRAMINE 25MG CAPSULE PO PRN (02:07)
[2021-12-25] MEDS: CLONIDINE 0.1MG TABLET PO PRN ×2 (02:08→16:14)
[2021-12-25 07:03] LABS: EOSINOPHILS % 4.2 % (0.0-5.0); HEMATOCRIT. 30.7 % (36.0-48.0); HEMOGLOBIN. 9.8 g/dL (12.0-16.0); LYMPHOCYTES % 18.7 % (20.0-50.0); MEAN CORPUSCULAR HEMOGLOBIN 31.3 pg (28.0-32.0); MEAN CORPUSCULAR VOLUME 98.3 fL (81.0-99.0); MEAN PLATELET VOLUME 8.4 fl (7.4-10.4); NEUTROPHILS % 70.1 % (40.0-76.0); PLATELET 166 x1000/uL (130-400); RED BLOOD CELL COUNT 3.13 mill/uL (4.2-5.4)
[2021-12-25 08:58] LABS: PHOSPHORUS 2.8 mg/dL (2.5-4.9)
[2021-12-25] MEDS: MUPIROCIN 2% OINT 22GM NS SCH ×2 (09:00→21:19)
[2021-12-25] MEDS ORDERED: AMLODIPINE 2.5MG TABLET PO SCH (09:00)
[2021-12-25] MEDS: MEGESTROL ACETATE 400 MG/10 ML UDC PO SCH ×4 (09:02→21:19)
[2021-12-25] MEDS: FOLIC ACID/VITAMIN B COMP W-C TABLET PO SCH (09:02)
[2021-12-25] MEDS: HYDROCODONE/ACETAMINOPHEN 5/325MG TABLET PO PRN (09:03)
[2021-12-25] MEDS ORDERED: MEGE400O4 PO (15:31)
[2021-12-25] MEDS ORDERED: EPOE40009 SUBCUT (15:31)
[2021-12-25] MEDS ORDERED: MIRT-89 PO (15:31)
[2021-12-25] MEDS ORDERED: MIRTAZAPINE 15MG TABLET PO SCH (21:00)
[2021-12-25] MEDS ORDERED: CLONIDINE 0.1MG TABLET PO NR (21:15)
== END 2021-12-25 22:40 | DRG 91 ==
LOC: ER 07:44 → 6WST 12:44 → ENRESERV 15:10
PROVIDERS: ADMIT Internal Medicine; ATTEND Specialist
PROC: 5A1D70Z Performance of Urinary Filtration, Intermittent, Less than 6 Hours Per Day (ICD-10-PCS; 2021-12-21)
PROC: 4A00X4Z Measurement of Central Nervous Electrical Activity, External Approach (ICD-10-PCS; principal; 2021-12-22)
PROC: 5A1D70Z Performance of Urinary Filtration, Intermittent, Less than 6 Hours Per Day (ICD-10-PCS; 2021-12-23)
PROC: 5A1D70Z Performance of Urinary Filtration, Intermittent, Less than 6 Hours Per Day (ICD-10-PCS; 2021-12-25)
DX: G92.8 Other toxic encephalopathy (principal); N18.6 End stage renal disease; I13.2 Hypertensive heart and chronic kidney disease with heart failure and with stage 5 chronic kidney disease, or end stage renal disease; I50.30 Unspecified diastolic (congestive) heart failure; J96.11 Chronic respiratory failure with hypoxia; F33.1 Major depressive disorder, recurrent, moderate; C90.00 Multiple myeloma not having achieved remission; I69.354 Hemiplegia and hemiparesis following cerebral infarction affecting left non-dominant side; K76.6 Portal hypertension; I27.20 Pulmonary hypertension, unspecified; J44.9 Chronic obstructive pulmonary disease, unspecified; K74.60 Unspecified cirrhosis of liver; E78.5 Hyperlipidemia, unspecified; E21.3 Hyperparathyroidism, unspecified; F41.9 Anxiety disorder, unspecified; Z20.822 Contact with and (suspected) exposure to COVID-19; K21.9 Gastro-esophageal reflux disease without esophagitis; F51.04 Psychophysiologic insomnia; Z82.49 Family history of ischemic heart disease and other diseases of the circulatory system; Z86.14 Personal history of Methicillin resistant Staphylococcus aureus infection; Z86.16 Personal history of COVID-19; Z87.442 Personal history of urinary calculi; Z90.5 Acquired absence of kidney; Z99.2 Dependence on renal dialysis; Z92.21 Personal history of antineoplastic chemotherapy; Z93.6 Other artificial openings of urinary tract status; Z99.81 Dependence on supplemental oxygen; Z99.3 Dependence on wheelchair; Z79.899 Other long term (current) drug therapy; E87.5 Hyperkalemia; D53.9 Nutritional anemia, unspecified; Z86.19 Personal history of other infectious and parasitic diseases
CPT/HCPCS: 36415; 71045; 80048; 80053; 80202; 82607; 82962; 83605; 83735; 84100; 84145; 84443; 85025; 86705; 86709; 86803; 87340; 87426; 93005; 95816; 97162; 99285; J0360; J0696; J0885; J3370; J3490; J7030; J7060; Q0163

== ENCOUNTER 2022-04-14 09:32 | Inpatient (IN) | payer MEDICARE, MEDICAID ==
[~2022-04-14] VITALS: Ht 165.1 cm; Wt 76.7 kg
[~2022-04-14 09:32] MED LIST changes: -ACYC200C31 PO; +EPOE40009 SUBCUT; +MEGE400O4 PO; +MIRT-89 PO
[2022-04-14] MEDS ORDERED: LIDOCAINE HCL 1% 20ML VIAL (Pyxis) INJ INFIL ONE (10:00)
[2022-04-14 10:29] LABS: BASOPHILS % 0.5 % (0.0-2.0); HEMATOCRIT. 34.2 % (36.0-48.0); LYMPHOCYTES % 8.7 % (20.0-50.0); MEAN CORPUSCULAR HEMOGLOBIN 31.9 pg (28.0-32.0); MEAN CORPUSCULAR VOLUME 99.2 fL (81.0-99.0); MONOCYTES % 2.7 % (2.0-8.0); NEUTROPHILS % 88.1 % (40.0-76.0); RED BLOOD CELL COUNT 3.45 mill/uL (4.2-5.4); RED CELL DISTRIBUTION WIDTH 19.2 % (11.6-14.6)
[2022-04-14 10:38] LABS: CHLORIDE 100 mEq/L (98-107)
[2022-04-14 10:58] LABS: PLATELET 163 x1000/uL (130-400)
[2022-04-14 16:00] VITALS: BP 117/69
[2022-04-14 16:33] VITALS: BP 113/55
[2022-04-14] MEDS ORDERED: DEXTROSE 50% WATER 50ML SYRINGE IV PRN (19:30)
[2022-04-14] MEDS ORDERED: ALBUTEROL (0.5%) 2.5MG/0.5ML NEB HHN PRN (19:30)
[2022-04-14] MEDS ORDERED: ACETAMINOPHEN 650MG/20.3ML UDC PO PRN (19:30)
[2022-04-14] MEDS ORDERED: SODIUM POLYSTYRENE SULFONATE 15 G/60 ML BOT PO NR (19:30)
[2022-04-14] MEDS ORDERED: CLONIDINE 0.1MG TABLET PO PRN (19:30)
[2022-04-14] MEDS ORDERED: ONDANSETRON HCL 4MG/2ML INJ IV PRN (19:30)
[2022-04-14 20:00] VITALS: BP 125/68
[2022-04-14] MEDS: BLOOD SUGAR DIAGNOSTIC STRIP TEST SCH (20:37)
[2022-04-15] VITALS (7 sets, daily range): BP systolic 98–155; BP diastolic 43–76
[2022-04-15] MEDS: BLOOD SUGAR DIAGNOSTIC STRIP TEST SCH ×4 (06:22→21:17)
[2022-04-15] MEDS ORDERED: INSULIN LISPRO 100 UNITS/ML SUBCUT SCH (12:20)
[2022-04-15 13:14] LABS: HEPATITIS B SURFACE ANTIGEN NEGATIVE
[2022-04-15] MEDS ORDERED: ONDANSETRON HCL 4MG TABLET PO PRN (18:45)
[2022-04-15] MEDS ORDERED: ACETAMINOPHEN 325MG TABLET PO PRN (18:45)
[2022-04-15] MEDS ORDERED: IBUPROFEN 600MG TABLET PO PRN (18:45)
[2022-04-15] MEDS ORDERED: HYDROXYZINE 25MG TABLET PO PRN (18:45)
[2022-04-15] MEDS ORDERED: IPRATROPIUM/ALBUTEROL 0.5-3(2.5)MG/3ML NEB NEB PRN (18:45)
[2022-04-15] MEDS ORDERED: DOCUSATE SODIUM 100MG CAPSULE PO PRN (18:45)
[2022-04-15] MEDS ORDERED: CLONIDINE 0.1MG TABLET PO SCH (18:45)
[2022-04-15] MEDS ORDERED: MEDICATION NOT ON FORMULARY EA (Midodrine Hcl 1 TAB) MT PRN (19:00)
[2022-04-15] MEDS ORDERED: AMINO ACIDS PO SCH (19:00)
[2022-04-15] MEDS ORDERED: PROTEIN HYDROLYS PO SCH (19:00)
[2022-04-15] MEDS ORDERED: DEXTROSE 50% WATER 50ML SYRINGE IV PRN (19:00)
[2022-04-15] MEDS ORDERED: DIPHENHYDRAMINE HCL MT SCH (19:00)
[2022-04-15] MEDS ORDERED: DIPHENHYDRAMINE 25MG CAPSULE PO PRN (19:15)
[2022-04-15] MEDS ORDERED: MIDODRINE HCL 5MG TABLET PO PRN (19:15)
[2022-04-15] MEDS ORDERED: DEXTROSE 4 GM TAB.CHEW PO PRN (19:45)
[2022-04-15] MEDS ORDERED: CALCIUM ACETATE MT SCH (21:00)
[2022-04-15] MEDS: INSULIN LISPRO 100 UNITS/ML SUBCUT SCH (21:00)
[2022-04-15] MEDS: MIRTAZAPINE 15MG TABLET PO SCH (21:17)
[2022-04-15] MEDS ORDERED: [UNRECOGNIZED DRUG - OTHER] PO PRN (23:30)
[2022-04-16] VITALS (7 sets, daily range): BP systolic 94–112; BP diastolic 35–54
[2022-04-16] MEDS: BLOOD SUGAR DIAGNOSTIC STRIP TEST SCH (06:14)
[2022-04-16] MEDS: INSULIN LISPRO 100 UNITS/ML SUBCUT SCH (07:31)
[2022-04-16 07:44] LABS: BASOPHILS % 0.1 % (0.0-2.0); EOSINOPHILS % 1.1 % (0.0-5.0); HEMOGLOBIN. 10.4 g/dL (12.0-16.0); LYMPHOCYTES % 21.6 % (20.0-50.0); MEAN CORPUSCULAR HEMOGLOBIN 32.5 pg (28.0-32.0); MEAN CORPUSCULAR VOLUME 100.3 fL (81.0-99.0); MEAN PLATELET VOLUME 8.1 fl (7.4-10.4); MONOCYTES % 9.8 % (2.0-8.0); NEUTROPHILS % 67.4 % (40.0-76.0); PLATELET 125 x1000/uL (130-400); RED BLOOD CELL COUNT 3.19 mill/uL (4.2-5.4); RED CELL DISTRIBUTION WIDTH 19.1 % (11.6-14.6)
[2022-04-16] MEDS ORDERED: CALCIUM ACETATE 667MG CAPSULE PO SCH (08:10)
[2022-04-16] MEDS ORDERED: CINACALCET HCL 30MG TABLET PO SCH (08:10)
[2022-04-16] MEDS: MEGESTROL ACETATE 400 MG/10 ML UDC PO SCH ×3 (08:31→17:10)
[2022-04-16] MEDS: FOLIC ACID/VITAMIN B COMP W-C TABLET PO SCH (08:32)
[2022-04-16] MEDS: GABAPENTIN 100MG CAPSULE PO SCH ×3 (08:32→17:10)
[2022-04-16] MEDS: FUROSEMIDE 20MG TABLET PO SCH (08:32)
[2022-04-16] MEDS: FAMOTIDINE 20MG TABLET PO SCH (08:33)
[2022-04-16] MEDS: SERTRALINE HCL 50MG TABLET PO SCH (08:33)
[2022-04-16] MEDS ORDERED: PANTOPRAZOLE 40MG DR TABLET PO SCH (09:00)
[2022-04-16] MEDS ORDERED: FOLIC ACID 1MG TABLET PO SCH (09:00)
[2022-04-16] MEDS ORDERED: FERROUS SULFATE 325MG TABLET PO SCH (09:00)
[2022-04-16] MEDS: MIRTAZAPINE 15MG TABLET PO SCH (21:35)
[2022-04-17] VITALS: BP 104/54
[2022-04-17 04:00] VITALS: BP 106/43
[2022-04-17 07:03] LABS: BASOPHILS % 0.2 % (0.0-2.0); EOSINOPHILS % 1.3 % (0.0-5.0); HEMATOCRIT. 35.4 % (36.0-48.0); HEMOGLOBIN. 11.4 g/dL (12.0-16.0); LYMPHOCYTES % 16.3 % (20.0-50.0); MEAN CORPUSCULAR HEMOGLOBIN 32.1 pg (28.0-32.0); MEAN CORPUSCULAR VOLUME 99.4 fL (81.0-99.0); MEAN PLATELET VOLUME 8.1 fl (7.4-10.4); NEUTROPHILS % 73.2 % (40.0-76.0); PLATELET 107 x1000/uL (130-400); RED BLOOD CELL COUNT 3.56 mill/uL (4.2-5.4); RED CELL DISTRIBUTION WIDTH 19.2 % (11.6-14.6)
[2022-04-17 07:37] LABS: PHOSPHORUS 4.5 mg/dL (2.5-4.9)
[2022-04-17 08:00] VITALS: BP 125/61
[2022-04-17] MEDS: FUROSEMIDE 20MG TABLET PO SCH (09:00)
[2022-04-17] MEDS: MEGESTROL ACETATE 400 MG/10 ML UDC PO SCH ×3 (10:12→17:57)
[2022-04-17] MEDS: GABAPENTIN 100MG CAPSULE PO SCH ×3 (10:13→17:57)
[2022-04-17] MEDS: FOLIC ACID/VITAMIN B COMP W-C TABLET PO SCH (10:13)
[2022-04-17] MEDS: FAMOTIDINE 20MG TABLET PO SCH (10:13)
[2022-04-17] MEDS: SERTRALINE HCL 50MG TABLET PO SCH (10:13)
[2022-04-17 12:00] VITALS: BP 90/56
[2022-04-17 16:00] VITALS: BP 85/67
[2022-04-17 20:00] VITALS: BP 137/51
[2022-04-17] MEDS ORDERED: EPOETIN ALFA-EPBX 4,000 UNIT/ML VIAL SUBCUT SCH (21:00)
[2022-04-20] MEDS ORDERED: DEXAMETHASONE PO SCH (09:00)
== END 2022-04-17 21:09 | DRG 291 ==
LOC: ER 09:32 → 6EST 12:09 → ENRESERV 12:57 → ER 13:28 → 7WST 04-15 08:43
PROVIDERS: ADMIT Family Medicine; ATTEND Family Medicine
PROC: 5A1D70Z Performance of Urinary Filtration, Intermittent, Less than 6 Hours Per Day (ICD-10-PCS; principal; 2022-04-15)
PROC: 5A1D70Z Performance of Urinary Filtration, Intermittent, Less than 6 Hours Per Day (ICD-10-PCS; 2022-04-16)
PROC: 5A1D70Z Performance of Urinary Filtration, Intermittent, Less than 6 Hours Per Day (ICD-10-PCS; 2022-04-17)
DX: I13.2 Hypertensive heart and chronic kidney disease with heart failure and with stage 5 chronic kidney disease, or end stage renal disease (principal); I50.33 Acute on chronic diastolic (congestive) heart failure; N18.6 End stage renal disease; C90.00 Multiple myeloma not having achieved remission; N25.81 Secondary hyperparathyroidism of renal origin; E44.0 Moderate protein-calorie malnutrition; I69.354 Hemiplegia and hemiparesis following cerebral infarction affecting left non-dominant side; G93.40 Encephalopathy, unspecified; E11.22 Type 2 diabetes mellitus with diabetic chronic kidney disease; K74.60 Unspecified cirrhosis of liver; F32.9 Major depressive disorder, single episode, unspecified; D63.1 Anemia in chronic kidney disease; E87.5 Hyperkalemia; I27.20 Pulmonary hypertension, unspecified; N20.0 Calculus of kidney; J44.9 Chronic obstructive pulmonary disease, unspecified; Z74.01 Bed confinement status; Z99.2 Dependence on renal dialysis; Z86.16 Personal history of COVID-19; Z82.49 Family history of ischemic heart disease and other diseases of the circulatory system; Z87.891 Personal history of nicotine dependence; Z87.442 Personal history of urinary calculi; Z92.21 Personal history of antineoplastic chemotherapy; Z93.1 Gastrostomy status; Z99.81 Dependence on supplemental oxygen; Z68.28 Body mass index [BMI] 28.0-28.9, adult; Z79.899 Other long term (current) drug therapy
CPT/HCPCS: 36415; 71045; 74176; 80048; 80053; 80061; 82607; 82962; 83036; 83540; 83550; 83605; 83735; 83880; 84100; 84145; 84484; 85025; 86705; 86709; 86803; 87340; 93005; 99285; A6261; C1893

== ENCOUNTER 2022-04-26 11:29 | Inpatient (IN) | payer MEDICARE, MEDICAID ==
[~2022-04-26] VITALS: Ht 162.6 cm; Wt 73.1 kg
[2022-04-26 12:35] LABS: BASOPHILS % 0.6 % (0.0-2.0); EOSINOPHILS % 1.6 % (0.0-5.0); HEMATOCRIT. 34.4 % (36.0-48.0); HEMOGLOBIN. 11.3 g/dL (12.0-16.0); LYMPHOCYTES % 16.4 % (20.0-50.0); MEAN CORPUSCULAR HEMOGLOBIN 32.2 pg (28.0-32.0); MEAN CORPUSCULAR VOLUME 97.8 fL (81.0-99.0); MEAN PLATELET VOLUME 8.3 fl (7.4-10.4); MONOCYTES % 9.2 % (2.0-8.0); NEUTROPHILS % 72.2 % (40.0-76.0); PLATELET 185 x1000/uL (130-400); RED BLOOD CELL COUNT 3.52 mill/uL (4.2-5.4); RED CELL DISTRIBUTION WIDTH 18.6 % (11.6-14.6)
[2022-04-26 12:48] LABS: CHLORIDE 99 mEq/L (98-107)
[2022-04-26] MEDS ORDERED: ONDANSETRON HCL 4MG/2ML INJ IV PRN (16:00)
[2022-04-26] MEDS ORDERED: NITROGLYCERIN 0.4MG TABLET SL SL PRN (16:00)
[2022-04-26] MEDS ORDERED: DOCUSATE SODIUM 100MG CAPSULE PO PRN (16:00)
[2022-04-26] MEDS ORDERED: IPRATROPIUM/ALBUTEROL 0.5-3(2.5)MG/3ML NEB NEB PRN (16:00)
[2022-04-26] MEDS ORDERED: DIPHENHYDRAMINE 50MG/ML VIAL IV PRN (16:00)
[2022-04-26] MEDS ORDERED: ACETAMINOPHEN 325MG TABLET PO PRN ×2 (16:00)
[2022-04-26] MEDS ORDERED: ZOLPIDEM TARTRATE 5MG TABLET PO PRN (16:00)
[2022-04-26] MEDS ORDERED: GUAIFENESIN 200MG/10ML SUGAR FREE UDC PO PRN (16:00)
[2022-04-26] MEDS ORDERED: MAGNESIUM/ALUMINUM HYDROXIDE/SIMETHICONE 30ML UDC PO PRN (16:00)
[2022-04-26] MEDS ORDERED: CLONIDINE 0.1MG TABLET PO PRN (16:00)
[2022-04-26] MEDS ORDERED: IPRATROPIUM/ALBUTEROL 0.5-3(2.5)MG/3ML NEB HHN PRN (16:15)
[2022-04-26 17:00] VITALS: BP 101/36
[2022-04-26 17:07] LABS: T4 FREE 0.62 ng/dL (0.76-1.46)
[2022-04-26 17:35] LABS: VITAMIN B12 SERUM 953 pg/mL (211-911)
[2022-04-26] MEDS: SEVELAMER CARBONATE 800 MG TABLET PO SCH (18:46)
[2022-04-26] MEDS: MIDODRINE HCL 5MG TABLET PO SCH (18:47)
[2022-04-26 20:00] VITALS: BP 132/68
[2022-04-26] MEDS: FAMOTIDINE 20MG TABLET PO SCH (21:36)
[2022-04-27] VITALS: BP 102/57
[2022-04-27 00:29] LABS: CREATINE KINASE 33 IU/L (26-192); CREATINE KINASE MB FRACTION 1.1 ng/mL (0.5-3.6)
[2022-04-27 04:00] VITALS: BP 93/50
[2022-04-27 07:37] LABS: BASOPHILS % 0.6 % (0.0-2.0); EOSINOPHILS % 2.5 % (0.0-5.0); HEMATOCRIT. 30.7 % (36.0-48.0); HEMOGLOBIN. 10.1 g/dL (12.0-16.0); LYMPHOCYTES % 18.5 % (20.0-50.0); MEAN CORPUSCULAR HEMOGLOBIN 32.9 pg (28.0-32.0); MEAN CORPUSCULAR VOLUME 100.1 fL (81.0-99.0); MEAN PLATELET VOLUME 8.6 fl (7.4-10.4); MONOCYTES % 9.2 % (2.0-8.0); NEUTROPHILS % 69.2 % (40.0-76.0); PLATELET 164 x1000/uL (130-400); RED BLOOD CELL COUNT 3.06 mill/uL (4.2-5.4); RED CELL DISTRIBUTION WIDTH 18.5 % (11.6-14.6)
[2022-04-27 07:53] LABS: CHLORIDE 100 mEq/L (98-107)
[2022-04-27 08:00] VITALS: BP 98/45
[2022-04-27 08:05] LABS: CREATINE KINASE MB FRACTION 1.2 ng/mL (0.5-3.6)
[2022-04-27 08:07] LABS: PHOSPHORUS 4.8 mg/dL (2.5-4.9)
[2022-04-27] MEDS: ASPIRIN 325MG EC TABLET PO SCH (08:55)
[2022-04-27] MEDS: SEVELAMER CARBONATE 800 MG TABLET PO SCH ×3 (08:55→17:34)
[2022-04-27] MEDS: MIDODRINE HCL 5MG TABLET PO SCH ×3 (08:56→17:34)
[2022-04-27] MEDS: ENOXAPARIN 30MG/0.3ML SYR SUBCUT SCH (08:57)
[2022-04-27 12:00] VITALS: BP 105/43
[2022-04-27 16:00] VITALS: BP 122/45
[2022-04-27 20:00] VITALS: BP 144/71
[2022-04-27] MEDS: FAMOTIDINE 20MG TABLET PO SCH (20:26)
[2022-04-28] VITALS: BP 119/58
[2022-04-28 04:00] VITALS: BP 91/38
[2022-04-28 06:09] LABS: HBSAG SCREEN Negative (Negative)
[2022-04-28 07:38] VITALS: BP 101/45
[2022-04-28] MEDS: ASPIRIN 325MG EC TABLET PO SCH (08:33)
[2022-04-28] MEDS: SEVELAMER CARBONATE 800 MG TABLET PO SCH ×3 (08:34→17:24)
[2022-04-28] MEDS: ENOXAPARIN 30MG/0.3ML SYR SUBCUT SCH (08:34)
[2022-04-28] MEDS: MIDODRINE HCL 5MG TABLET PO SCH ×3 (08:34→17:00)
[2022-04-28 12:21] VITALS: BP 115/67
[2022-04-28 16:00] VITALS: BP 149/50
[2022-04-28 17:30] LABS: PHOSPHORUS 2.8 mg/dL (2.5-4.9)
[2022-04-28 20:00] VITALS: BP 140/49
[2022-04-28] MEDS: FAMOTIDINE 20MG TABLET PO SCH (21:01)
[2022-04-28 21:53] LABS: BASOPHILS % 0.6 % (0.0-2.0); EOSINOPHILS % 2.3 % (0.0-5.0); HEMATOCRIT. 31.1 % (36.0-48.0); HEMOGLOBIN. 9.9 g/dL (12.0-16.0); LYMPHOCYTES % 16.6 % (20.0-50.0); MEAN CORPUSCULAR HEMOGLOBIN 32.4 pg (28.0-32.0); MEAN CORPUSCULAR VOLUME 101.7 fL (81.0-99.0); MEAN PLATELET VOLUME 8.3 fl (7.4-10.4); MONOCYTES % 8.3 % (2.0-8.0); NEUTROPHILS % 72.2 % (40.0-76.0); PLATELET 166 x1000/uL (130-400); RED BLOOD CELL COUNT 3.06 mill/uL (4.2-5.4); RED CELL DISTRIBUTION WIDTH 18.2 % (11.6-14.6)
[2022-04-29] VITALS (7 sets, daily range): BP systolic 100–153; BP diastolic 43–86
[2022-04-29 07:39] LABS: BASOPHILS % 0.8 % (0.0-2.0); EOSINOPHILS % 2.2 % (0.0-5.0); HEMATOCRIT. 33.1 % (36.0-48.0); HEMOGLOBIN. 10.7 g/dL (12.0-16.0); LYMPHOCYTES % 16.5 % (20.0-50.0); MEAN CORPUSCULAR HEMOGLOBIN 32.6 pg (28.0-32.0); MEAN CORPUSCULAR VOLUME 100.6 fL (81.0-99.0); MEAN PLATELET VOLUME 8.8 fl (7.4-10.4); MONOCYTES % 7.9 % (2.0-8.0); NEUTROPHILS % 72.6 % (40.0-76.0); PLATELET 175 x1000/uL (130-400); RED BLOOD CELL COUNT 3.29 mill/uL (4.2-5.4); RED CELL DISTRIBUTION WIDTH 19.1 % (11.6-14.6)
[2022-04-29 08:03] LABS: PHOSPHORUS 3.7 mg/dL (2.5-4.9)
[2022-04-29] MEDS: MIDODRINE HCL 5MG TABLET PO SCH ×3 (09:00→17:00)
[2022-04-29] MEDS: ENOXAPARIN 30MG/0.3ML SYR SUBCUT SCH (09:38)
[2022-04-29] MEDS: ASPIRIN 325MG EC TABLET PO SCH (09:44)
[2022-04-29] MEDS: SEVELAMER CARBONATE 800 MG TABLET PO SCH ×3 (09:44→19:51)
[2022-04-29] MEDS: FAMOTIDINE 20MG TABLET PO SCH (20:21)
[2022-04-30] VITALS: BP 126/67
[2022-04-30 04:00] VITALS: BP 124/67
[2022-04-30] MEDS: SEVELAMER CARBONATE 800 MG TABLET PO SCH (06:32)
[2022-04-30 07:49] VITALS: BP 121/69
[2022-04-30] MEDS: MIDODRINE HCL 5MG TABLET PO SCH (09:00)
[2022-04-30] MEDS: ENOXAPARIN 30MG/0.3ML SYR SUBCUT SCH (09:00)
[2022-04-30] MEDS: ASPIRIN 325MG EC TABLET PO SCH (09:00)
== END 2022-04-30 12:34 | DRG 640 ==
LOC: ER 11:29 → 8WST 14:39 → ENRESERV 15:34
PROVIDERS: ADMIT Internal Medicine; ATTEND Internal Medicine
PROC: 5A1D70Z Performance of Urinary Filtration, Intermittent, Less than 6 Hours Per Day (ICD-10-PCS; principal; 2022-04-27)
PROC: 5A1D70Z Performance of Urinary Filtration, Intermittent, Less than 6 Hours Per Day (ICD-10-PCS; 2022-04-28)
DX: E87.5 Hyperkalemia (principal); N18.6 End stage renal disease; I13.2 Hypertensive heart and chronic kidney disease with heart failure and with stage 5 chronic kidney disease, or end stage renal disease; C90.00 Multiple myeloma not having achieved remission; E46 Unspecified protein-calorie malnutrition; I69.354 Hemiplegia and hemiparesis following cerebral infarction affecting left non-dominant side; I50.30 Unspecified diastolic (congestive) heart failure; J44.9 Chronic obstructive pulmonary disease, unspecified; D63.8 Anemia in other chronic diseases classified elsewhere; E11.22 Type 2 diabetes mellitus with diabetic chronic kidney disease; E11.42 Type 2 diabetes mellitus with diabetic polyneuropathy; I95.1 Orthostatic hypotension; K74.60 Unspecified cirrhosis of liver; Z68.27 Body mass index [BMI] 27.0-27.9, adult; Z99.2 Dependence on renal dialysis; R74.01 Elevation of levels of liver transaminase levels; Z74.01 Bed confinement status; Z87.442 Personal history of urinary calculi; Z92.21 Personal history of antineoplastic chemotherapy; Z82.49 Family history of ischemic heart disease and other diseases of the circulatory system; Z98.890 Other specified postprocedural states
CPT/HCPCS: 36415; 71045; 76700; 80048; 80053; 80061; 82550; 82553; 82607; 82962; 83036; 83735; 83880; 84100; 84439; 84443; 84484; 85025; 86705; 86709; 86803; 87340; 93005; 93306; 93970; 99291; J1650; J2405